=== PATIENT | female | born 1940 | race Caucasian/White ===

== ENCOUNTER → 2017-04-09 | Outpatient (CLI) | payer MEDICARE ==
[2016-01-07 11:20] VITALS: BMI 18.7
[~2017-04-09] MED LIST: ADV100/50 INH; ALB0.5 INH; ALB18R INH; ALBU8.5H IH; ALBU8.5H11 INH; ASP325 PO; ASPI-1471 PO; AUG875 PO; AZIT-17 PO; AZIT500T47 PO; BENZ100C4 PO; BUDE0.256 IH; BUDE0.5A6 IH; DOXY-181 PO; DOXY100T3 PO; DUL100/5PT IH; ESTR625 PO; FLU IM; FLU45SYR17 IM; FLU45SYR25 IM ONLY; FLUT1DIS28 IH; FORM20VI IH; HERB1CAP PO; HYDR-4309 PO; IBU200 PO; IPRA3AMP21 IH; KET10 PO; LANS15CA38 PO; LEVO-3 PO; LEVO100T95 PO; LEVO75TA68 PO; LEVO75TA73 PO; LEVO88TA45 PO; MIRT-22; MIRT-22 PO; OXYGEN INH; OXYGENHOME INH; PNEU0.5D3 IM; PRE10 PO; PRE20 PO; PRED-420 PO; PRED20TA6 PO; PSYP PO; SIMV-49 PO; TIO18R INFIL; TIO18R INH; TRAM-627 PO; TUM500 PO; VERA180T50 PO; VERS120 PO; ZOLP-350 PO; ZOLP-360 PO; [UNRECOGNIZED DRUG - CODE] PO; [UNRECOGNIZED DRUG - CODE] PO; [UNRECOGNIZED DRUG - OTHER] PO
[2017-04-09 09:33] LABS: PLATELET COUNT, AUTOMATED 324 K/uL (150-450)
== END ==
LOC: LAB 09:03
PROVIDERS: ATTEND Internal Medicine
DX: R09.02 Hypoxemia (principal); J44.9 Chronic obstructive pulmonary disease, unspecified; E03.9 Hypothyroidism, unspecified; I10 Essential (primary) hypertension
CPT/HCPCS: 36415; 82040; 82247; 82310; 82374; 82435; 82565; 82947; 84075; 84132; 84155; 84295; 84439; 84443; 84450; 84460; 84520; 85025

== ENCOUNTER → 2017-07-31 | Outpatient (CLI) | payer MEDICARE ==
[2016-01-07 11:20] VITALS: BMI 18.7
[2017-07-31 16:34] LABS: PLATELET COUNT, AUTOMATED 309 K/uL (150-450)
== END ==
LOC: LAB 16:14
PROVIDERS: ATTEND Internal Medicine
DX: J44.9 Chronic obstructive pulmonary disease, unspecified (principal); I10 Essential (primary) hypertension; E03.9 Hypothyroidism, unspecified; R09.02 Hypoxemia; R41.3 Other amnesia
CPT/HCPCS: 36415; 82040; 82247; 82310; 82374; 82435; 82565; 82947; 84075; 84132; 84155; 84295; 84439; 84443; 84450; 84460; 84520; 85025

== ENCOUNTER → 2017-08-19 | Outpatient (CLI) | payer MEDICARE ==
[2016-01-07 11:20] VITALS: BMI 18.7
[~2017-08-19] MED LIST changes: +GADOBENATE 529MG/1ML 15ML VIAL IVP ONE
--- NOTE | 2017-08-19 17:13 | RADIOLOGY IMAGING REPORT ---
FACILITY: [facility] - [place] PATIENT NAME: Yareli Malcolm : 1940 MR: [id number] V: [id number] EXAM DATE: ORDERING PHYSICIAN: ОЛЬГА DOUGLAS TECHNOLOGIST: Location: [facility] Patient: Yareli Malcolm : 1940 Visit/Account:[id number] Date of Sevice: 08/19/2017 BRAIN W W/O CONTRAST Provided history: memory decline Additional pertinent history: none TECHNIQUE: Multiplanar multisequence brain MRI was performed without and with intravenous contrast Contrast dose: 11 mL of MultiHance. Additional focused sequences: none COMPARISON STUDIES: Brain MRI 03/14/16 FINDINGS: Brain volume: Normal Acute ischemia: None Chronic cortical and ganglionic ischemia: none significant Hemorrhage: None Masses / edema: None White matter lesions : Reidentified are multiple deep and peripheral T2 hyperintensities, little marguerite nged from the prior exam. Additional high signal parallels the surface of lateral ventricles along t he anterior bodies and frontal horns also little changed. There is sparing of the temporal lobes and the juxtacortical white matter. Brainstem and cerebellum are normal. Vessels: There is a mildly prominent flow void of the left internal carotid bifurcation that I doubt is significant. Extra-axial: Asymmetric CSF intensity over the right cerebellar hemisphere measures up to 7 mm in gr eatest thickness. It is precisely isointense to CSF on all sequences. It is slightly more prominent compared to most recent exam. There are no older exams for comparison.. Calvarium / scalp: Negative Skull base / infratemporal fossa: Cerebellar tonsils extend just below the foramen magnum, within no rmal limits. Visualized sinuses / orbits / upper neck: Mild sphenoid inflammatory disease, stable from prior. IMPRESSION: 1. No evidence of hemorrhage, intra-axial mass or acute ischemia. 2. White matter changes, more than is typical for age. Pattern more consistent with chronic small v essel disease than demyelination. 3. Potential subdural hygroma over the right cerebellar hemisphere. Surveillance follow-up may be w arranted. Report Dictated By: Keyon Frazier MD at 08/19/2017 5:01 PM Report E-Signed By: Keyon Frazier MD at 08/19/2017 5:09 PM WSN:[id number]
== END ==
LOC: MRI 02:25
PROVIDERS: ATTEND Internal Medicine
DX: I67.9 Cerebrovascular disease, unspecified (principal)
CPT/HCPCS: 70553; A9577

== ENCOUNTER → 2018-01-08 | Outpatient (CLI) | payer MEDICARE ==
[2016-01-07 11:20] VITALS: BMI 18.7
[~2018-01-08] MED LIST changes: -GADOBENATE 529MG/1ML 15ML VIAL IVP ONE; -HYDR-4309 PO; +HYDR-653 PO; +IPRA3AMP10 IH; -IPRA3AMP21 IH; +TRAZ50TA34 PO; +VERA120T14 PO
--- NOTE | 2018-01-08 11:11 | RADIOLOGY IMAGING REPORT ---
FACILITY: [facility] PATIENT NAME: Yareli Malcolm : 1940 MR: [id number] V: [id number] EXAM DATE: ORDERING PHYSICIAN: DWIGHT SAUER TECHNOLOGIST: Location: [facility] [place] Patient: Yareli Malcolm : 1940 Visit/Account:[id number] Date of Sevice: 01/08/2018 CHEST W/O CONTRAST History: Pulmonary emphysema, COPD, shortness of breath TECHNIQUE: Contiguous axial images were performed through the chest to the level of the adrenal gla nds. No IV contrast was administered. Coronal and sagittal reformatting was also performed.Dose Lower ing Technique One of the following dose optimization techniques was utilized in the performance of this exam: Autom ated exposure control; adjustment of the mA and/or kV according to the patient's size; or use of an i terative reconstruction technique. Specific details can be referenced in the facility's radiology C T exam operational policy. COMPARISON STUDIES: CTA chest June 25, 2016. Lungs / Pleura: Biapical fibrotic stranding appears similar to the prior study. Right upper lobe b ullous disease also appears similar. There is diffuse emphysematous changes throughout the lung fiel ds scarring again noted in the lingula right middle lobe and right lower lobe Mediastinum/nodes: negative. Heart and vessels: There are coronary artery calcifications mild to moderate calcifications identifi ed in the thoracic aorta and branch vessels Musculoskeletal / Body wall: Osteopenia the visualized bones and spondylotic changes of the thoraci c spine. There are bilateral breast implants with extensive capsular calcifications again noted Upper abdomen: Incompletely imaged is the left upper pole left renal cyst small splenule also ident ified in the left upper abdomen IMPRESSION: Severe emphysematous changes again seen throughout the lungs in addition to right upper lobe bullous disease. Scarring in the right middle lobe lingula and right lower lobe also again noted Additional chronic findings as described Report Dictated By: Monae Damian MD at 01/08/2018 10:58 AM Report E-Signed By: Monae Damian MD at 01/08/2018 11:06 AM WSN:[email or web address]
== END ==
LOC: CT 00:30
PROVIDERS: ATTEND Internal Medicine
DX: J43.9 Emphysema, unspecified (principal); R91.8 Other nonspecific abnormal finding of lung field
CPT/HCPCS: 71250

== ENCOUNTER 2018-04-05 09:22 | Emergency (ER) | payer MEDICARE ==
[2016-01-07 11:20] VITALS: Wt 45.4 kg
[~2018-04-05 09:22] MED LIST changes: -VERA120T14 PO; +VERA120T76 PO
--- NOTE | 2018-04-05 09:27 | ER Report ---
History and Physical Time Seen By MD: 09:27 HPI/ROS CHIEF COMPLAINT: Decreased hearing, otalgia HISTORY OF PRESENT ILLNESS: Patient is a 78-year-old female here with complaints of bilateral otalgia, decreased hearing especially in the left ear. Patient was seen on the and started on amoxicillin, antimicrobial and steroid eardrops. Patient reports no improvement of symptoms and increased hearing loss. REVIEW OF SYSTEMS: Constitutional: No fever, no chills. Eyes: No discharge. ENT: No sore throat. + b/l decreased hearing and otalgia Cardiovascular: No chest pain, no palpitations. Respiratory: No cough, no shortness of breath. Gastrointestinal: No abdominal pain, no vomiting. Genitourinary: No hematuria. Musculoskeletal: No back pain. Skin: No rashes. Neurological: No headache. Allergies: Coded Allergies: No Known Drug Allergies (Verified , 04/05/18) Home Meds Active Scripts Verapamil Hcl (VERAPAMIL ER) 120 Mg Tablet.er, 1 TAB PO DAILY, #90 TAB Prov:ОЛЬГА DOUGLAS MD 01/06/18 Verapamil HCl (Verapamil Sr) 120 Mg Cap24h.pel, 1 TAB PO DAILY, #90 TAB 3 Refills Prov:ОЛЬГА DOUGLAS MD 01/01/18 Albuterol Sulfate (VENTOLIN HFA) 18 Gm Inh, 2 PUFF INH Q4-6H PRN for SHORTNESS OF BREATH, #1 INH 6 Refills Prov:ОЛЬГА DOUGLAS MD 08/01/17 Ipratropium/Albuterol Sulfate (IPRAT-ALBUT 0.5-3(2.5) MG/3 ML) 3 Ml Ampul.neb, 3 ML IH QID PRN for SHORTNESS OF BREATH, #60 VIAL 5 Refills Prov:ОЛЬГА DOUGLAS MD 08/01/17 Aspirin (ASPIR 81) 81 Mg Tablet.dr, 81 MG PO QDAY, #90 TAB Prov:ОЛЬГА DOUGLAS MD 03/16/16 Reported Medications Melatonin (MELATONIN) 10 Mg Capsule, 10 MG PO HS, CAPSULE 04/05/18 Levothyroxine Sodium (LEVOTHYROXINE SODIUM) 100 Mcg Tablet, 100 MCG PO QDAY, TAB 04/05/18 Oxygen (OXYGEN) Inha, 5 L INH, L 06/29/16 Budesonide (BUDESONIDE) 0.25 Mg/2 Ml Ampul.neb, 0.25 MG IH BID, ML 01/06/16 Formoterol Fumarate (PERFOROMIST) 20 Mcg/2 Ml Vial.neb, 20 MCG IH BID 01/06/16 Hx Smoking: Yes Smoking Status: Former Smoker Exposure to Second Hand Smoke?: Yes (SOME: FAMILY SMOKES OUTSIDE) Hx Substance Use Disorder: No Hx Alcohol Use: Yes (RARELY) Constitutional Physical Exam General Appearance: The patient is alert, has no immediate need for airway protection and no signs of toxicity. NAD Eyes: Pupils equal and round no pallor or injection. ENT, Mouth: + b/l cerumen impaction Respiratory: There are no retractions, lungs are clear to auscultation. Neurological: No focal neuro findings Skin: Warm and dry, no rashes. Musculoskeletal: Neck is supple non tender. Extremities are nontender, nonswollen and have full range of motion. DIFFERENTIAL DIAGNOSIS: After history and physical exam differential diagnosis was considered for cerumen impaction, conductive nerve damage, otitis media, otitis externa Medical Decision Making ED Course/Re-evaluation ED Course Patient is a 78-year-old female here with complaints of bilateral otalgia, decreased hearing. Patient was found to have partial cerumen impactions of the ear canals bilaterally. Patient's cerumen impactions were partially removed using cerumen scraper and ear flush. Patient had mild improvement of symptoms. Recommend follow-up with ENT. Recommend stopping steroid eardrops as the ear canal has become very friable. Patient was stable at time of discharge. Decision to Disposition Date: Apr 05, 2018 Decision to Disposition Time: 10:44 Depart Departure Latest Vital Signs Impression: Primary Impression: Ear ache Additional Impression: Hearing loss Condition: Improved Disposition: HOME OR SELF-CARE Referrals: ОЛЬГА DOUGLAS MD (PCP) Patient Instructions: Hearing Loss (ED) Additional Instructions: Please follow-up with ear nose and throat to further evaluate your hearing loss and ear pain. Please discontinue your eardrops and avoid using Q-tips or other [id number] products that may cause trauma to the ear ear canal. Please return immediately if you develop headaches, worsening pain, increased hearing loss. Problem Qualifiers ROGER DE JESUS DO Apr 05, 2018 09:27
[2018-04-05] MEDS ORDERED: LEVO-3 PO (09:34)
[2018-04-05] MEDS ORDERED: MELA10CA PO (09:34)
[2018-04-05 09:35] VITALS: BP 141/97
== END 2018-04-05 10:53 | disposition home or self-care (01) ==
LOC: ER 09:37
DX: H92.03 Otalgia, bilateral (principal)
CPT/HCPCS: 69210; 99282

== ENCOUNTER → 2018-05-06 | Outpatient (CLI) | payer MEDICARE ==
[2016-01-07 11:20] VITALS: BMI 18.7
[~2018-05-06] MED LIST changes: +FLUT16SP19 NS; +MELA10CA PO
--- NOTE | 2018-05-06 15:05 | RADIOLOGY IMAGING REPORT ---
FACILITY: [facility] PATIENT NAME: Yareli Malcolm : 1940 MR: [id number] V: [id number] EXAM DATE: ORDERING PHYSICIAN: LUL RAMÍREZ TECHNOLOGIST: Location: [facility] Patient: Yareli Malcolm : 1940 Visit/Account:[id number] Date of Sevice: 05/06/2018 XR WRIST 3 OR MORE VIEWS HISTORY: Bilateral wrist pain, fell forward on wrists 3 wks ago Additional history: None COMPARISON: None. FINDINGS: Three views bilateral wrists. Osseous structures of both wrists are intact without evidence of fract ure. There is mild intercarpal joint space narrowing at the scaphotrapezium joints bilaterally. IMPRESSION: Negative for acute fracture. 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
--- NOTE | 2018-05-06 15:06 | RADIOLOGY IMAGING REPORT ---
FACILITY: [facility] PATIENT NAME: Yareli Malcolm : 1940 MR: [id number] V: [id number] EXAM DATE: ORDERING PHYSICIAN: LUL RAMÍREZ TECHNOLOGIST: Location: [facility] [place] Patient: Yareli Malcolm : 1940 Visit/Account:[id number] Date of Sevice: 05/06/2018 HUMERUS RIGHT Given history: R upper arm pain, fell 3 wks ago COMPARISON STUDIES: NONE FINDINGS: Osseous structures: Humerus intact without evidence of fracture Joints: Right shoulder and elbow joints appear grossly normal Soft tissues: normal . IMPRESSION: Negative exam. Report Dictated By: Marcus Valdez MD at 05/06/2018 3:00 PM Report E-Signed By: Marcus Valdez MD at 05/06/2018 3:00 PM WSN:[email or web address]
== END ==
LOC: RAD 11:45
PROVIDERS: ATTEND Nurse Practitioner Primary Care
DX: M25.531 Pain in right wrist (principal); M79.601 Pain in right arm

== ENCOUNTER 2018-05-31 10:04 | Emergency (ER) | payer MEDICARE ==
[2016-01-07 11:20] VITALS: Wt 44.5 kg
--- NOTE | 2018-05-31 10:11 | ER Report ---
History and Physical Time Seen By MD: 10:11 HPI/ROS CHIEF COMPLAINT: Weakness, right upper extremity edema, proximal right upper extremity pain HISTORY OF PRESENT ILLNESS: Patient is a 78-year-old female here after a fall approximately one month ago with complaints of proximal right upper extremity pain, distal edema, concern for clot formation, increasing fatigue, decreased appetite. Patient's family member also reports that the patient has been confused, increasingly more forgetful over the past several days. Right upper extremity has proximal pain, distal edema prompting concern from family. Patient is alert and oriented, hemodynamically stable at time of evaluation. REVIEW OF SYSTEMS: Constitutional: No fever, no chills. Eyes: No discharge. ENT: No sore throat. Cardiovascular: No chest pain, no palpitations. Respiratory: No cough, no shortness of breath. Gastrointestinal: No abdominal pain, no vomiting. Genitourinary: No hematuria. Musculoskeletal: + Right distal upper extremity mild edema without pitting, proximal tenderness on palpation of the humerus of the right upper extremity. Capillary refill less than 2 seconds in the distal extremity Skin: No rashes. Neurological: Neurovascular exam intact, patient was alert and oriented at time of evaluation Allergies: Coded Allergies: No Known Drug Allergies (Verified , 05/31/18) Home Meds Active Scripts Sulfamethoxazole/Trimet 800-160 Mg Tab (BACTRIM DS TABLET) 1 Each Tablet, 1 TAB PO Q12H for 7 Days, #14 TAB Prov:ROGER DE JESUS DO 05/31/18 Ondansetron 4 Mg Odt (ONDANSETRON 4 MG ODT) 4 Mg Tab.rapdis, 4 MG PO ONCE, #20 TAB Prov:ROGER DE JESUS DO 05/31/18 Tramadol Hcl (TRAMADOL HCL) 50 Mg Tablet, 50 MG PO Q6H PRN for PAIN, #20 TAB 0 Refills Prov:ROGER DE JESUS DO 05/31/18 Fluticasone Prop 50 Mcg Ns (FLONASE 50 MCG NS) 16 Gm Solsberry.susp, 2 SPRAYS NS QDAY for 14 Days, #1 BOT 0 Refills Prov:LUL RAMÍREZ DNP, MANAGER BUSINESS CONTINUITY-BC 05/06/18 Albuterol Sulfate (VENTOLIN HFA) 18 Gm Inh, 2 PUFF INH Q4-6H PRN for SHORTNESS OF BREATH, #1 INH 6 Refills Prov:ОЛЬГА DOUGLAS MD 08/01/17 Ipratropium/Albuterol Sulfate (IPRAT-ALBUT 0.5-3(2.5) MG/3 ML) 3 Ml Ampul.neb, 3 ML IH QID PRN for SHORTNESS OF BREATH, #60 VIAL 5 Refills Prov:ОЛЬГА DOUGLAS MD 08/01/17 Aspirin (ASPIR 81) 81 Mg Tablet.dr, 81 MG PO QDAY, #90 TAB Prov:ОЛЬГА DOUGLAS MD 03/16/16 Reported Medications Pnv#75/Iron Fum/Fa/Om3/Dha/Epa (ONE A DAY DHA PACK) 1 Each Combo..pkg, 1 CAP PO QDAY 05/31/18 Melatonin (MELATONIN) 10 Mg Capsule, 10 MG PO HS, CAPSULE 04/05/18 Levothyroxine Sodium (LEVOTHYROXINE SODIUM) 100 Mcg Tablet, 100 MCG PO QDAY, TAB 04/05/18 Oxygen (OXYGEN) Inha, 5 L INH, L 06/29/16 Budesonide (BUDESONIDE) 0.25 Mg/2 Ml Ampul.neb, 0.25 MG IH BID, ML 01/06/16 Formoterol Fumarate (PERFOROMIST) 20 Mcg/2 Ml Vial.neb, 20 MCG IH BID 01/06/16 Discontinued Scripts Verapamil Hcl (VERAPAMIL ER) 120 Mg Tablet.er, 1 TAB PO DAILY, #90 TAB Prov:ОЛЬГА DOUGLAS MD 01/06/18 Verapamil HCl (Verapamil Sr) 120 Mg Cap24h.pel, 1 TAB PO DAILY, #90 TAB 3 Refills Prov:ОЛЬГА DOUGLAS MD 01/01/18 Hx Smoking: Yes Smoking Status: Former Smoker Exposure to Second Hand Smoke?: Yes (SOME: FAMILY SMOKES OUTSIDE) Hx Substance Use Disorder: No Hx Alcohol Use: Yes (RARELY) Constitutional Vital Sign - Last 24 Hours 05/31/18 05/31/18 05/31/18 05/31/18 10:16 10:22 10:31 10:34 Temp 98.5 Pulse 71 74 Resp 18 20 B/P (MAP) 152/91 (111) 152/91 Pulse Ox 98 97 O2 Delivery Nasal Cannula O2 Flow Rate 3.0 05/31/18 05/31/18 05/31/18 4/20/19 11:00 11:04 11:09 11:55 Pulse 82 71 Resp 23 18 B/P (MAP) 147/84 (105) 143/83 (103) Pulse Ox 98 99 05/31/18 05/31/18 05/31/18 05/31/18 12:00 12:02 12:05 12:30 Pulse 73 75 Resp 17 19 B/P (MAP) 132/84 (100) 140/86 (104) Pulse Ox 96 96 O2 Delivery Nasal Cannula Nasal Cannula O2 Flow Rate 3 2 05/31/18 05/31/18 05/31/18 12:35 13:00 13:05 Pulse 76 74 Resp 20 20 B/P (MAP) 141/85 (103) Pulse Ox 96 95 O2 Delivery Nasal Cannula Nasal Cannula O2 Flow Rate 2 2 Physical Exam General Appearance: The patient is alert, has no immediate need for airway protection and no signs of toxicity. Nontoxic in appearance Eyes: Pupils equal and round no pallor or injection. ENT, Mouth: Mucous membranes are moist. Respiratory: There are no retractions, lungs are clear to auscultation. Cardiovascular: Regular rate and rhythm. Gastrointestinal: Abdomen is soft and non tender, no masses, bowel sounds normal. Neurological: Alert and oriented, moving all extremities spontaneously, no focal neurological findings on examination Skin: Warm and dry, no rashes. Musculoskeletal: Neck is supple non tender. Mild edema in the distal right upper extremity, proximal tenderness on palpation of the right humerus DIFFERENTIAL DIAGNOSIS: After history and physical exam differential diagnosis was considered for DVT, trauma, fracture, contusion, electrolyte abnormality, infectious etiology, viral syndrome Medical Decision Making Data Points Result Diagram: 05/31/18 1042 05/31/18 1042 Laboratory Hematology Test 05/31/18 10:42 05/31/18 12:17 Red Blood Count 3.38 M/uL (4.17-5.56) Mean Corpuscular Volume 99.8 fL (80.0-96.0) Mean Corpuscular Hemoglobin 32.7 pg (26.0-33.0) Mean Corpuscular Hemoglobin Concent 32.8 g/dL (32.0-36.0) Red Cell Distribution Width 13.3 % (11.5-14.5) Mean Platelet Volume 7.8 fL (7.2-11.1) Neutrophils (%) (Auto) 57.4 % (39.4-72.5) Lymphocytes (%) (Auto) 27.8 % (17.6-49.6) Monocytes (%) (Auto) 6.1 % (4.1-12.4) Eosinophils (%) (Auto) 6.8 % (0.4-6.7) Basophils (%) (Auto) 1.9 % (0.3-1.4) Nucleated RBC Relative Count (auto) 0.0 /100WBC Neutrophils # (Auto) 4.2 K/uL (2.0-7.4) Lymphocytes # (Auto) 2.0 K/uL (1.3-3.6) Monocytes # (Auto) 0.4 K/uL (0.3-1.0) Eosinophils # (Auto) 0.5 K/uL (0.0-0.5) Basophils # (Auto) 0.1 K/uL (0.0-0.1) Nucleated RBC Absolute Count (auto) 0.00 K/uL Prothrombin Time 12.1 seconds (12.0-14.4) Prothromb Time International Ratio 0.90 Activated Partial Thromboplast Time 29 seconds (23-35) Sodium Level 139 mmol/L (137-145) Potassium Level 3.8 mmol/L (3.5-5.0) Chloride Level 105 mmol/L (98-107) Carbon Dioxide Level 28 mmol/L (22-31) Blood Urea Nitrogen 18 mg/dl (7-18) Creatinine 0.80 mg/dl (0.52-1.04) Glomerular Filtration Rate Calc > 60.0 Random Glucose 76 mg/dl (75-110) Calcium Level 8.9 mg/dl (8.4-10.2) Total Bilirubin 0.2 mg/dl (0.2-1.3) Aspartate Amino Transf (AST/SGOT) 24 U/L (0-35) Alanine Aminotransferase (ALT/SGPT) 15 U/L (0-56) Alkaline Phosphatase 58 U/L (0-126) Total Protein 7.0 g/dl (6.3-8.2) Albumin 3.6 g/dl (3.5-5.0) Lipase 71 U/L (23-300) Serum Alcohol < 10 mg/dl Urine Color Straw Urine Clarity Clear Urine pH 5.0 pH (4.8-9.5) Urine Specific [place] 1.024 Urine Protein Negative mg/dL (NEGATIVE) Urine Glucose (UA) Negative mg/dL (NEGATIVE) Urine Ketones Trace mg/dL (NEGATIVE) Urine Blood Negative (NEGATIVE) Urine Nitrite Positive (NEGATIVE) Urine Bilirubin Negative (NEGATIVE) Urine Urobilinogen Negative mg/dL (0.2-1.9) Urine Leukocyte Esterase Trace (NEGATIVE) Urine RBC 1 /HPF (0-2/HPF) Urine WBC 8 /HPF (0-5/HPF) Urine Squamous Epithelial Cells Many /LPF (</=FEW) Urine Amorphous Crystals Few /HPF Urine Bacteria Few /HPF (NONE-FEW) Urine Mucus None /HPF (NONE-FEW) Chemistry Test 05/31/18 10:42 05/31/18 12:17 White Blood Count 7.4 k/uL (4.5-11.0) Red Blood Count 3.38 M/uL (4.17-5.56) Hemoglobin 11.1 g/dL (12.0-16.0) Hematocrit 33.8 % (34.0-47.0) Mean Corpuscular Volume 99.8 fL (80.0-96.0) Mean Corpuscular Hemoglobin 32.7 pg (26.0-33.0) Mean Corpuscular Hemoglobin Concent 32.8 g/dL (32.0-36.0) Red Cell Distribution Width 13.3 % (11.5-14.5) Platelet Count 352 K/uL (150-450) Mean Platelet Volume 7.8 fL (7.2-11.1) Neutrophils (%) (Auto) 57.4 % (39.4-72.5) Lymphocytes (%) (Auto) 27.8 % (17.6-49.6) Monocytes (%) (Auto) 6.1 % (4.1-12.4) Eosinophils (%) (Auto) 6.8 % (0.4-6.7) Basophils (%) (Auto) 1.9 % (0.3-1.4) Nucleated RBC Relative Count (auto) 0.0 /100WBC Neutrophils # (Auto) 4.2 K/uL (2.0-7.4) Lymphocytes # (Auto) 2.0 K/uL (1.3-3.6) Monocytes # (Auto) 0.4 K/uL (0.3-1.0) Eosinophils # (Auto) 0.5 K/uL (0.0-0.5) Basophils # (Auto) 0.1 K/uL (0.0-0.1) Nucleated RBC Absolute Count (auto) 0.00 K/uL Prothrombin Time 12.1 seconds (12.0-14.4) Prothromb Time International Ratio 0.90 Activated Partial Thromboplast Time 29 seconds (23-35) Glomerular Filtration Rate Calc > 60.0 Calcium Level 8.9 mg/dl (8.4-10.2) Total Bilirubin 0.2 mg/dl (0.2-1.3) Aspartate Amino Transf (AST/SGOT) 24 U/L (0-35) Alanine Aminotransferase (ALT/SGPT) 15 U/L (0-56) Alkaline Phosphatase 58 U/L (0-126) Total Protein 7.0 g/dl (6.3-8.2) Albumin 3.6 g/dl (3.5-5.0) Lipase 71 U/L (23-300) Serum Alcohol < 10 mg/dl Urine Color Straw Urine Clarity Clear Urine pH 5.0 pH (4.8-9.5) Urine Specific [place] 1.024 Urine Protein Negative mg/dL (NEGATIVE) Urine Glucose (UA) Negative mg/dL (NEGATIVE) Urine Ketones Trace mg/dL (NEGATIVE) Urine Blood Negative (NEGATIVE) Urine Nitrite Positive (NEGATIVE) Urine Bilirubin Negative (NEGATIVE) Urine Urobilinogen Negative mg/dL (0.2-1.9) Urine Leukocyte Esterase Trace (NEGATIVE) Urine RBC 1 /HPF (0-2/HPF) Urine WBC 8 /HPF (0-5/HPF) Urine Squamous Epithelial Cells Many /LPF (</=FEW) Urine Amorphous Crystals Few /HPF Urine Bacteria Few /HPF (NONE-FEW) Urine Mucus None /HPF (NONE-FEW) Coagulation Test 05/31/18 10:42 Prothrombin Time 12.1 seconds Prothromb Time International Ratio 0.90 Activated Partial Thromboplast Time 29 seconds Toxicology Test 05/31/18 10:42 Serum Alcohol < 10 mg/dl Urinalysis Test 05/31/18 12:17 Urine Color Straw Urine Clarity Clear Urine pH 5.0 pH (4.8-9.5) Urine Specific [place] 1.024 Urine Protein Negative mg/dL (NEGATIVE) Urine Glucose (UA) Negative mg/dL (NEGATIVE) Urine Ketones Trace mg/dL (NEGATIVE) Urine Blood Negative (NEGATIVE) Urine Nitrite Positive (NEGATIVE) Urine Bilirubin Negative (NEGATIVE) Urine Urobilinogen Negative mg/dL (0.2-1.9) Urine Leukocyte Esterase Trace (NEGATIVE) Urine RBC 1 /HPF (0-2/HPF) Urine WBC 8 /HPF (0-5/HPF) Urine Squamous Epithelial Cells Many /LPF (</=FEW) Urine Amorphous Crystals Few /HPF Urine Bacteria Few /HPF (NONE-FEW) Urine Mucus None /HPF (NONE-FEW) EKG/Imaging Imaging PATIENT NAME: Yareli Malcolm : 1940 MR: [id number] V: [id number] EXAM DATE: ORDERING PHYSICIAN: ROGER DE JESUS TECHNOLOGIST: Location: [facility] [place] Patient: Yareli Malcolm : 1940 Visit/Account:[id number] Date of Sevice: 05/31/2018 EXAMINATION: CT Head without intravenous contrast CT Cervical spine without intravenous contrast HISTORY: Trauma. TECHNIQUE: Head: Axial images were obtained from the skull base to the vertex without intravenous contrast. Sagittal and coronal reformatted images are also submitted. Cervical spine: Axial images were obtained from the skull base through the upper thoracic spine without IV contrast administration. Coronal and sagittal reformatted images were obtained from the axial source data. One of the following dose optimization techniques was utilized in the performance of this exam: Automated exposure control; adjustment of the mA and/or kV according to the patient's size; or use of an iterative reconstruction technique. Specific details can be referenced in the facility's radiology CT exam operational policy. COMPARISON: None available. FINDINGS: HEAD: Brain volume: Normal. Ventricles: Negative. Acute ischemic changes: None. Hemorrhage: None. Masses / edema: None. Diaz-white: Negative. White matter: Negative. Vessels: Mild calcified plaque in the carotid siphons and vertebral arteries. Extra-axial: Negative. Calvarium / skull base: Negative. Visualized sinuses / orbits: Moderate mucosal thickening in the left sphenoid sinus. Leftward nasal septal deviation. Left mastoid effusion. CERVICAL SPINE: Alignment: 3 mm of anterior listhesis of C3 over C4. Mild convex leftward curvature. Cranio-cervical junction: Moderate degenerative changes. Otherwise negative. Vertebral bodies: Negative. Posterior elements: Multilevel facet hypertrophy. Hardware: None. Disc Spaces: Multilevel degenerative disc disease. Soft tissues: No prevertebral soft tissue swelling. Visualized upper chest: Emphysema in the upper lungs. IMPRESSION: 1. No acute intracranial abnormality. 2. No acute cervical spine fracture. PATIENT NAME: Yareli Malcolm : 1940 MR: [id number] V: [id number] EXAM DATE: ORDERING PHYSICIAN: ROGER DE JESUS TECHNOLOGIST: Location: [facility] [place] Patient: Yareli Malcolm : 1940 Visit/Account:[id number] Date of Sevice: 05/31/2018 Technique: CHEST SINGLE AP HISTORY: fall. weakness Comparison studies: CT chest December 31, 2017, chest radiograph July 05, 2016 FINDINGS: Regional areas of scarring in the background setting of interstitial lung markings are noted throughout the lungs. These findings are most pronounced within the right lung base. The cardiac silhouette is unchanged. IMPRESSION: 1. Unchanged emphysematous findings. No acute airspace process. PATIENT NAME: Yareli Malcolm : 1940 MR: [id number] V: [id number] EXAM DATE: ORDERING PHYSICIAN: ROGER DE JESUS TECHNOLOGIST: Location: [facility] [place] Patient: Yareli Malcolm : 1940 Visit/Account:[id number] Date of Sevice: 05/31/2018 EXAMINATION: CT Head without intravenous contrast CT Cervical spine without intravenous contrast HISTORY: Trauma. TECHNIQUE: Head: Axial images were obtained from the skull base to the vertex without int ravenous contrast. Sagittal and coronal reformatted images are also submitted. Cervical spine: Axial images were obtained from the skull base through the upper thoracic spine without IV contrast administration. Coronal and sagittal reformatted images were obtained from the axial source data. One of the following dose optimization techniques was utilized in the performance of this exam: Automated exposure control; adjustment of the mA and/or kV according to the patient's size; or use of an iterative reconstruction technique. Specific details can be referenced in the facility's radiology CT exam operational policy. COMPARISON: None available. FINDINGS: HEAD: Brain volume: Normal. Ventricles: Negative. Acute ischemic changes: None. Hemorrhage: None. Masses / edema: None. Diaz-white: Negative. White matter: Negative. Vessels: Mild calcified plaque in the carotid siphons and vertebral arteries. Extra-axial: Negative. Calvarium / skull base: Negative. Visualized sinuses / orbits: Moderate mucosal thickening in the left sphenoid sinus. Leftward nasal septal deviation. Left mastoid effusion. CERVICAL SPINE: Alignment: 3 mm of anterior listhesis of C3 over C4. Mild convex leftward curvature. Cranio-cervical junction: Moderate degenerative changes. Otherwise negative. Vertebral bodies: Negative. Posterior elements: Multilevel facet hypertrophy. Hardware: None. Disc Spaces: Multilevel degenerative disc disease. Soft tissues: No prevertebral soft tissue swelling. Visualized upper chest: Emphysema in the upper lungs. IMPRESSION: 1. No acute intracranial abnormality. 2. No acute cervical spine fracture. PATIENT NAME: Yareli Malcolm : 1940 MR: [id number] V: [id number] EXAM DATE: ORDERING PHYSICIAN: ROGER DE JESUS TECHNOLOGIST: Location: [facility] [place] Patient: Yareli Malcolm : 1940 Visit/Account:[id number] Date of Sevice: 05/31/2018 CTA UPPER EXTREMITY INDICATION: Right upper extremity pain. TECHNIQUE: Axial CTA of the right upper extremity with IV contrast. Sagittal and coronal MPR. Sagittal and coronal MIP. One of the following dose optimization techniques was utilized in the performance of this exam: Automated exposure control; adjustment of the mA and/or kV according to the patient's size; or use of an iterative reconstruction technique. Specific details can be referenced in the facility's radiology CT exam operational policy. COMPARISON: None. CONTRAST: 85 mL of IV [id number]. FINDINGS: Vascular findings: Mild calcified and noncalcified plaque in the aortic arch and proximal left subclavian artery with no significant stenosis. Mild calcified plaque in the carotid bulbs with no significant stenosis. No significant plaque, stenosis, or aneurysm in the right upper extremity arteries. Nonvascular findings: Multilevel degenerative disc disease and facet hypertrophy in the cervical spine . Emphysema in the lungs. IMPRESSION: No significant plaque, stenosis, or aneurysm in the right upper extremity arteries. ED Course/Re-evaluation ED Course Patient is a 78-year-old female here with complaints of right upper extremity distal edema, tenderness in the proximal extremity, fatigue, generalized weakness, reports of intermittent change in mental status. CT of the head, extremity, vasculature showed no findings of infection, abscess or clot formation or thrombosis. Labs are unremarkable with no leukocytosis. Patient was given normal saline bolus, fentanyl. Chest x-ray showed no acute findings. Patient was found to have a urinalysis consistent with urinary tract infection. Patient was given ceftriaxone due to reports of change in mental status, ge neralized weakness. Patient was given compression stocking for right upper extremity edema. Patient was given Bactrim, tramadol, Zofran for symptomatic outpatient management. Close PCP follow-up recommended. Return precautions provided. Decision to Disposition Date: May 31, 2018 Decision to Disposition Time: 13:01 Depart Departure Latest Vital Signs Vital Signs Date Time Temp Pulse Resp B/P (MAP) Pulse Ox O2 Delivery O2 Flow Rate FiO2 05/31/18 13:05 74 20 95 Nasal Cannula 2 05/31/18 13:00 141/85 (103) 05/31/18 10:22 98.5 Impression: Primary Impression: Urinary tract infection Additional Impression: Right upper limb pain Condition: Improved Disposition: HOME OR SELF-CARE Referrals: ОЛЬГА DOUGLAS MD (PCP) New Scripts Sulfamethoxazole/Trimet 800-160 Mg Tab (BACTRIM DS TABLET) 1 Each Tablet 1 TAB PO Q12H for 7 Days, #14 TAB Prov: ROGER DE JESUS DO 05/31/18 Ondansetron 4 Mg Odt (ONDANSETRON 4 MG ODT) 4 Mg Tab.rapdis 4 MG PO ONCE, #20 TAB Prov: ROGER DE JESUS DO 05/31/18 Tramadol Hcl (TRAMADOL HCL) 50 Mg Tablet 50 MG PO Q6H PRN for PAIN, #20 TAB 0 Refills Prov: ROGER DE JESUS DO 05/31/18 Patient Instructions: Urinary Tract Infection in Women (ED) Additional Instructions: Please drink plenty of water. You were diagnosed with a urinary tract infection and given ceftriaxone for initial treatment, please take Bactrim 1 tablet twice daily for 7 days. You may take Zofran 1 tablet every 4-6 hours as needed for nausea and vomiting. You may take tramadol 1 tablet every 6-8 hours as needed for breakthrough pain control. Please follow-up with her primary care provider in the next 24-48 hours. Please return promptly if you develop increased weakness, fevers, nausea, vomiting. Problem Qualifiers ROGER DE JESUS DO May 31, 2018 10:11
[2018-05-31] MEDS ORDERED: PNV#1COM14 PO (10:31)
[2018-05-31] MEDS ORDERED: NS(*) 0.9% 1000 ML BAG 1,000 ML IV ONE (10:54)
[2018-05-31 11:07] LABS: PLATELET COUNT, AUTOMATED 352 K/uL (150-450)
[2018-05-31 11:08] LABS: INR 0.9
[2018-05-31] MEDS ORDERED: IOPAMIDOL 76% 150 ML INFUS BTL 150 ML ONE (11:27)
[2018-05-31] MEDS ORDERED: NS(*) 0.9% 50 ML BAG 50 ML ONE (11:27)
--- NOTE | 2018-05-31 11:41 | RADIOLOGY IMAGING REPORT ---
FACILITY: [facility] [place] PATIENT NAME: Yareli Malcolm : 1940 MR: [id number] V: [id number] EXAM DATE: ORDERING PHYSICIAN: ROGER DE JESUS TECHNOLOGIST: Location: [facility] Patient: Yareli Malcolm : 1940 Visit/Account:[id number] Date of Sevice: 05/31/2018 Technique: CHEST SINGLE AP HISTORY: fall. weakness Comparison studies: CT chest December 31, 2017, chest radiograph July 05, 2016 FINDINGS: Regional areas of scarring in the background setting of interstitial lung markings are note d throughout the lungs. These findings are most pronounced within the right lung base. The cardiac si lhouette is unchanged. IMPRESSION: 1. Unchanged emphysematous findings. No acute airspace process. Report Dictated By: Sherwin Everett DO at 05/31/2018 11:35 AM Report E-Signed By: Sherwin Everett DO at 05/31/2018 11:37 AM WSN:[id number]
--- NOTE | 2018-05-31 12:29 | RADIOLOGY IMAGING REPORT ---
FACILITY: [facility] [place] PATIENT NAME: Yareli Malcolm : 1940 MR: [id number] V: [id number] EXAM DATE: ORDERING PHYSICIAN: ROGER DE JESUS TECHNOLOGIST: Location: [facility] Patient: Yareli Malcolm : 1940 Visit/Account:[id number] Date of Sevice: 05/31/2018 EXAMINATION: CT Head without intravenous contrast CT Cervical spine without intravenous contrast HISTORY: Trauma. TECHNIQUE: Head: Axial images were obtained from the skull base to the vertex without intravenous contrast. Sa gittal and coronal reformatted images are also submitted. Cervical spine: Axial images were obtained from the skull base through the upper thoracic spine with out IV contrast administration. Coronal and sagittal reformatted images were obtained from the axial source data. One of the following dose optimization techniques was utilized in the performance of this exam: Autom ated exposure control; adjustment of the mA and/or kV according to the patient's size; or use of an i terative reconstruction technique. Specific details can be referenced in the facility's radiology C T exam operational policy. COMPARISON: None available. FINDINGS: HEAD: Brain volume: Normal. Ventricles: Negative. Acute ischemic changes: None. Hemorrhage: None. Masses / edema: None. Diaz-white: Negative. White matter: Negative. Vessels: Mild calcified plaque in the carotid siphons and vertebral arteries. Extra-axial: Negative. Calvarium / skull base: Negative. Visualized sinuses / orbits: Moderate mucosal thickening in the left sphenoid sinus. Leftward nasal septal deviation. Left mastoid effusion. CERVICAL SPINE: Alignment: 3 mm of anterior listhesis of C3 over C4. Mild convex leftward curvature. Cranio-cervical junction: Moderate degenerative changes. Otherwise negative. Vertebral bodies: Negative. Posterior elements: Multilevel facet hypertrophy. Hardware: None. Disc Spaces: Multilevel degenerative disc disease. Soft tissues: No prevertebral soft tissue swelling. Visualized upper chest: Emphysema in the upper lungs. IMPRESSION: 1. No acute intracranial abnormality. 2. No acute cervical spine fracture. Report Dictated By: Jason Youssef MD at 05/31/2018 12:15 PM Report E-Signed By: Jason Youssef MD at 05/31/2018 12:25 PM WSN:[id number]
--- NOTE | 2018-05-31 12:29 | RADIOLOGY IMAGING REPORT ---
FACILITY: [facility] - [place] PATIENT NAME: Yareli Malcolm : 1940 MR: [id number] V: [id number] EXAM DATE: ORDERING PHYSICIAN: ROGER DE JESUS TECHNOLOGIST: Location: [facility] Patient: Yareli Malcolm : 1940 Visit/Account:[id number] Date of Sevice: 05/31/2018 EXAMINATION: CT Head without intravenous contrast CT Cervical spine without intravenous contrast HISTORY: Trauma. TECHNIQUE: Head: Axial images were obtained from the skull base to the vertex without intravenous contrast. Sa gittal and coronal reformatted images are also submitted. Cervical spine: Axial images were obtained from the skull base through the upper thoracic spine with out IV contrast administration. Coronal and sagittal reformatted images were obtained from the axial source data. One of the following dose optimization techniques was utilized in the performance of this exam: Autom ated exposure control; adjustment of the mA and/or kV according to the patient's size; or use of an i terative reconstruction technique. Specific details can be referenced in the facility's radiology C T exam operational policy. COMPARISON: None available. FINDINGS: HEAD: Brain volume: Normal. Ventricles: Negative. Acute ischemic changes: None. Hemorrhage: None. Masses / edema: None. Diaz-white: Negative. White matter: Negative. Vessels: Mild calcified plaque in the carotid siphons and vertebral arteries. Extra-axial: Negative. Calvarium / skull base: Negative. Visualized sinuses / orbits: Moderate mucosal thickening in the left sphenoid sinus. Leftward nasal septal deviation. Left mastoid effusion. CERVICAL SPINE: Alignment: 3 mm of anterior listhesis of C3 over C4. Mild convex leftward curvature. Cranio-cervical junction: Moderate degenerative changes. Otherwise negative. Vertebral bodies: Negative. Posterior elements: Multilevel facet hypertrophy. Hardware: None. Disc Spaces: Multilevel degenerative disc disease. Soft tissues: No prevertebral soft tissue swelling. Visualized upper chest: Emphysema in the upper lungs. IMPRESSION: 1. No acute intracranial abnormality. 2. No acute cervical spine fracture. Report Dictated By: Jason Youssef MD at 05/31/2018 12:15 PM Report E-Signed By: Jason Youssef MD at 05/31/2018 12:25 PM WSN:[id number]
[2018-05-31] MEDS ORDERED: fentaNYL CITR 100 MCG/2 ML AMP IVP ONE (12:40)
[2018-05-31] MEDS ORDERED: cefTRIAXone 1 GM VIAL IVP ONE (12:40)
--- NOTE | 2018-05-31 12:47 | RADIOLOGY IMAGING REPORT ---
[place] [facility] [place]IENT NAME: Yareli Malcolm : 1940 MR: [id number] V: [id number] EXAM DATE: ORDERING PHYSICIAN: ROGER DE JESUS TECHNOLOGIST: Location: [facility] Patient: Yareli Malcolm : 1940 Visit/Account:[id number] Date of Sevice: 05/31/2018 CTA UPPER EXTREMITY INDICATION: Right upper extremity pain. TECHNIQUE: Axial CTA of the right upper extremity with IV contrast. Sagittal and coronal MPR. Sagittal and coron al MIP. One of the following dose optimization techniques was utilized in the performance of this exam: Autom ated exposure control; adjustment of the mA and/or kV according to the patient's size; or use of an i terative reconstruction technique. Specific details can be referenced in the facility's radiology C T exam operational policy. COMPARISON: None. CONTRAST: 85 mL of IV Isovue-370. FINDINGS: Vascular findings: Mild calcified and noncalcified plaque in the aortic arch and proximal left subclavian artery with no significant stenosis. Mild calcified plaque in the carotid bulbs with no significant stenosis. No si gnificant plaque, stenosis, or aneurysm in the right upper extremity arteries. Nonvascular findings: Multilevel degenerative disc disease and facet hypertrophy in the cervical spine. Emphysema in the reinier ngs. IMPRESSION: No significant plaque, stenosis, or aneurysm in the right upper extremity arteries. Report Dictated By: Jason Youssef MD at 05/31/2018 12:35 PM Report E-Signed By: Jason Youssef MD at 05/31/2018 12:43 PM WSN:[id number]
[2018-05-31 13:00] VITALS: BP 141/85
[2018-05-31] MEDS ORDERED: SULF-198 PO (13:05)
[2018-05-31] MEDS ORDERED: TRAM-420 PO (13:05)
[2018-05-31] MEDS ORDERED: ONDA4TAB9 PO (13:05)
== END 2018-05-31 13:37 | disposition home or self-care (01) ==
LOC: ER 10:13
DX: N39.0 Urinary tract infection, site not specified (principal); M79.601 Pain in right arm; R41.0 Disorientation, unspecified
CPT/HCPCS: 70450; 71045; 72125; 73206; 81001; 83690; 85025; 85610; 85730; 96361; 96374; 96375; 99284; G0480; J0696; J3010; J7030; J7050; L0172; Q9967; 80320; 82040; 82247; 82310; 82374; 82435; 82565; 82947; 84075; 84132; 84155; 84295; 84450; 84460; 84520

== ENCOUNTER 2018-06-03 10:11 | Inpatient (IN) | payer MEDICARE ==
[~2018-06-03] VITALS: Ht 165.1 cm; Wt 37.6 kg
[~2018-06-03 10:11] MED LIST changes: +ONDA4TAB9 PO; +PNV#1COM14 PO; +SULF-198 PO; +TRAM-420 PO
--- NOTE | 2018-06-03 10:20 | ER Report ---
History and Physical Time Seen By MD: 10:20 HPI/ROS CHIEF COMPLAINT: Generalized weakness HISTORY OF PRESENT ILLNESS: Patient is a 78-year-old female here with complaints of increasing generalized weakness and recent diagnosis of a UTI on the . Patient is currently being treated with Bactrim but reports increasing weakness, inability to get up from a seated position. Patient was found to be hypoxic on evaluation in spite of being on her 3 L. Patient is alert but reports increasing dyspnea especially with speaking. Patient is afebrile at time of evaluation. REVIEW OF SYSTEMS: Constitutional: No fever, no chills. Eyes: No discharge. ENT: No sore throat. Cardiovascular: No chest pain, no palpitations. Respiratory: No cough, + shortness of breath. Gastrointestinal: No abdominal pain, no vomiting. Genitourinary: No hematuria. Musculoskeletal: No back pain. Skin: No rashes. Neurological: + Generalized weakness, intermittent confusion Allergies: Coded Allergies: No Known Drug Allergies (Verified , 05/31/18) Home Meds Active Scripts Fluticasone Prop 50 Mcg Ns (FLONASE 50 MCG NS) 16 Gm [place].susp, 1 SPRAYS NS QDAY for 30 Days, #1 BOT 0 Refills Prov:JAMES RIGGS SCIENCE SPECIALIST 06/09/18 Tramadol Hcl (TRAMADOL HCL) 50 Mg Tablet, 50 MG PO Q6H PRN for PAIN, #20 TAB 0 Refills Prov:ROGER DE JESUS DO 05/31/18 Albuterol Sulfate (VENTOLIN HFA) 18 Gm Inh, 2 PUFF INH Q4-6H PRN for SHORTNESS OF BREATH, #1 INH 6 Refills Prov:ОЛЬГА DOUGLAS MD 08/01/17 Aspirin (ASPIR 81) 81 Mg Tablet.dr, 81 MG PO QDAY, #90 TAB Prov:ОЛЬГА DOUGLAS MD 03/16/16 Reported Medications Levothyroxine Sodium (LEVOTHYROXINE SODIUM) 75 Mcg Tablet, 75 MCG PO QDAY, TAB 06/06/18 Verapamil Hcl (VERAPAMIL ER) 120 Mg Tablet.er, 1 CAP PO HS 06/03/18 Pnv#75/Iron Fum/Fa/Om3/Dha/Epa (ONE A DAY DHA PACK) 1 Each Combo..pkg, 1 CAP PO QDAY 05/31/18 Melatonin (MELATONIN) 10 Mg Capsule, 10 MG PO HS, CAPSULE 04/05/18 Oxygen (OXYGEN) Inha, 5 L INH, L 06/29/16 Budesonide (BUDESONIDE) 0.25 Mg/2 Ml Ampul.neb, 0.25 MG IH BID, ML 01/06/16 Formoterol Fumarate (PERFOROMIST) 20 Mcg/2 Ml Vial.neb, 20 MCG IH BID 01/06/16 Discontinued Reported Medications Levothyroxine Sodium (LEVOTHYROXINE SODIUM) 100 Mcg Tablet, 100 MCG PO QDAY, TAB 04/05/18 Discontinued Scripts Sulfamethoxazole/Trimet 800-160 Mg Tab (BACTRIM DS TABLET) 1 Each Tablet, 1 TAB PO Q12H for 7 Days, #14 TAB Prov:ROGER DE JESUS DO 05/31/18 Ipratropium/Albuterol Sulfate (IPRAT-ALBUT 0.5-3(2.5) MG/3 ML) 3 Ml Ampul.neb, 3 ML IH QID PRN for SHORTNESS OF BREATH, #60 VIAL 5 Refills Prov:ОЛЬГА DOUGLAS MD 08/01/17 Ondansetron 4 Mg Odt (ONDANSETRON 4 MG ODT) 4 Mg Tab.rapdis, 4 MG PO ONCE, #20 TAB Prov:ROGER DE JESUS DO 05/31/18 Hx Smoking: Yes Smoking Status: Former Smoker Exposure to Second Hand Smoke?: Yes (SOME: FAMILY SMOKES OUTSIDE) Hx Substance Use Disorder: No Hx Alcohol Use: Yes (RARELY) Constitutional Physical Exam General Appearance: The patient is alert, has no immediate need for airway protection and no signs of toxicity. Eyes: Pupils equal and round no pallor or injection. ENT, Mouth: Mucous membranes are moist. Respiratory: There are no retractions, lungs are clear to auscultation. Cardiovascular: Regular rate and rhythm. Gastrointestinal: Abdomen is soft and non tender, no masses, bowel sounds normal. Neurological: Generalized weakness, no focal deficits Skin: Warm and dry, no rashes. Musculoskeletal: Neck is supple non tender. Extremities are nontender, nonswollen and have full range of motion. DIFFERENTIAL DIAGNOSIS: After history and physical exam differential diagnosis was considered for infection, electrolyte abnormality, anemia, concussion, cranial bleed Medical Decision Making Data Points Result Diagram: 06/09/1852406/09/18524 Laboratory Hematology Test 06/03/18 00:00 06/03/18 10:52 06/03/18 11:37 06/03/18 11:55 Thyroid Stimulating Hormone (TSH) 1.31 uIU/ml (0.46-4.68) Prothrombin Time 12.1 seconds (12.0-14.4) Prothromb Time International Ratio 0.90 Activated Partial Thromboplast Time 28 seconds (23-35) Lactate 1.3 mmol/L (0.7-2.1) Amylase Level 46 U/L (0-110) Lipase 40 U/L (23-300) Serum Alcohol < 10 mg/dl Ammonia < 9 UMOL/L (9-33) Urine Color Yellow Urine Clarity Clear Urine pH 6.0 pH (4.8-9.5) Urine Specific [place] 1.016 Urine Protein Negative mg/dL (NEGATIVE) Urine Glucose (UA) Negative mg/dL (NEGATIVE) Urine Ketones Trace mg/dL (NEGATIVE) Urine Blood Negative (NEGATIVE) Urine Nitrite Negative (NEGATIVE) Urine Bilirubin Negative (NEGATIVE) Urine Urobilinogen Negative mg/dL (0.2-1.9) Urine Leukocyte Esterase Negative (NEGATIVE) Urine RBC 1 /HPF (0-2/HPF) Urine WBC 1 /HPF (0-5/HPF) Urine Squamous Epithelial Cells Many /LPF (</=FEW) Urine Bacteria Negative /HPF (NONE-FEW) Urine Mucus None /HPF (NONE-FEW) Chemistry Test 06/03/18 00:00 06/03/18 10:52 06/03/18 11:37 06/03/18 11:55 Thyroid Stimulating Hormone (TSH) 1.31 uIU/ml (0.46-4.68) Prothrombin Time 12.1 seconds (12.0-14.4) Prothromb Time International Ratio 0.90 Activated Partial Thromboplast Time 28 seconds (23-35) Lactate 1.3 mmol/L (0.7-2.1) Amylase Level 46 U/L (0-110) Lipase 40 U/L (23-300) Serum Alcohol < 10 mg/dl Ammonia < 9 UMOL/L (9-33) Urine Color Yellow Urine Clarity Clear Urine pH 6.0 pH (4.8-9.5) Urine Specific [place] 1.016 Urine Protein Negative mg/dL (NEGATIVE) Urine Glucose (UA) Negative mg/dL (NEGATIVE) Urine Ketones Trace mg/dL (NEGATIVE) Urine Blood Negative (NEGATIVE) Urine Nitrite Negative (NEGATIVE) Urine Bilirubin Negative (NEGATIVE) Urine Urobilinogen Negative mg/dL (0.2-1.9) Urine Leukocyte Esterase Negative (NEGATIVE) Urine RBC 1 /HPF (0-2/HPF) Urine WBC 1 /HPF (0-5/HPF) Urine Squamous Epithelial Cells Many /LPF (</=FEW) Urine Bacteria Negative /HPF (NONE-FEW) Urine Mucus None /HPF (NONE-FEW) Coagulation Test 06/03/18 10:52 Prothrombin Time 12.1 seconds Prothromb Time International Ratio 0.90 Activated Partial Thromboplast Time 28 seconds Toxicology Test 06/03/18 10:52 Serum Alcohol < 10 mg/dl Urinalysis Test 06/03/18 11:55 Urine Color Yellow Urine Clarity Clear Urine pH 6.0 pH (4.8-9.5) Urine Specific [place] 1.016 Urine Protein Negative mg/dL (NEGATIVE) Urine Glucose (UA) Negative mg/dL (NEGATIVE) Urine Ketones Trace mg/dL (NEGATIVE) Urine Blood Negative (NEGATIVE) Urine Nitrite Negative (NEGATIVE) Urine Bilirubin Negative (NEGATIVE) Urine Urobilinogen Negative mg/dL (0.2-1.9) Urine Leukocyte Esterase Negative (NEGATIVE) Urine RBC 1 /HPF (0-2/HPF) Urine WBC 1 /HPF (0-5/HPF) Urine Squamous Epithelial Cells Many /LPF (</=FEW) Urine Bacteria Negative /HPF (NONE-FEW) Urine Mucus None /HPF (NONE-FEW) EKG/Imaging EKG Interpretation PATIENT NAME: CL WHEELER : [id number] MR: [id number] V: [id number] EXAM DATE: ORDERING PHYSICIAN: MARGAUX PEREZ TECHNOLOGIST: CAROL Test Reason : Blood Pressure : / mmHG Vent. Rate : 101 BPM Atrial Rate : 101 BPM P-R Int : 112 ms QRS Dur : 074 ms QT Int : 352 ms P-R-T Axes : 060 039 022 degrees QTc Int : 456 ms Sinus tachycardia with premature supraventricular complexes No ST-T abnormalities When compared with ECG of 25-JUN-2016 07:41, premature supraventricular complexes are now present Nonspecific T wave abnormality, improved in Inferior leads Nonspecific T wave abnormality no longer evident in Anterior leads Confirmed by MARGAUX PEREZ ([id number]) on 06/04/2018 12:09:52 AM Referred By: Confirmed By:MARGAUX PEREZ Imaging PATIENT NAME: Cl Wheeler : 1940 MR: [id number] V: [id number] EXAM DATE: [id number] ORDERING PHYSICIAN: ROGER DE JESUS TECHNOLOGIST: [place] [facility] [place] Cl [place] : 1940 Visit/Account:[id number] Date of Sevice: 06/03/2018 CHEST SINGLE AP Indication: Shortness of breath.. Comparison: 05/31/2018. Findings: Cardiomediastinal silhouette and pulmonary vessels within normal limits. There is no focal infiltrate or lobar consolidation. Mild emphysematous changes are again present. No pneumothorax or pleural effusion. Tiny stable nodules in the lateral right upper lobe. No new nodules. Chronic interstitial changes. Upper abdomen is unremarkable. No acute bony abnormality. Breast implants with peripheral calcifications are again identified. IMPRESSION: 1. Stable chest without acute cardiopulmonary disease. [place] [facility] [place] Cl [place] : 1940 Visit/Account:[id number] Date of Sevice: 06/03/2018 EXAMINATION: CT Head without intravenous contrast CT Cervical spine without intravenous contrast HISTORY: Trauma. TECHNIQUE: Head: Axial images were obtained from the skull base to the vertex without intravenous contrast. Sagittal and coronal reformatted images are also submitted. Cervical spine: Axial images were obtained from the skull base through the upper thoracic spine without IV contrast administration. Coronal and sagittal reformatted images were obtained from the axial source data. One of the following dose optimization techniques was utilized in the performance of this exam: Automated exposure control; adjustment of the mA and/or kV according to the patient's size; or use of an iterative reconstruction technique. Specific details can be referenced in the facility's radiology CT exam operational policy. COMPARISON: 05/31/2018. FINDINGS: HEAD: Brain volume: Normal. Ventricles: Negative. Acute ischemic changes: None. Hemorrhage: None. Masses / edema: None. Diaz-white: Negative. White matter: Negative. Vessels: Negative. Extra-axial: Negative. Calvarium / skull base: Negative. Visualized sinuses / orbits: Chronic left sphenoid sinusitis. Mild bilateral temporomandibular joint arthritis. Partially opacified left mastoid air cells. No significant change. CERVICAL SPINE: Alignment: 4 mm of anterior listhesis of C3 over C4. Mild convex leftward curvature. Cranio-cervical junction: Moderate degenerative changes. Normal alignment. Vertebral bodies: Degenerative endplate changes at a few levels. Otherwise negative. Posterior elements: Multilevel facet hypertrophy, right worse than left. Hardware: None. Disc Spaces: Multilevel degenerative disc disease. Soft tissues: No prevertebral soft tissue swelling. Calcified plaque in the carotid bulbs, right worse than left. Visualized upper chest: Emphysema. IMPRESSION: 1. No acute intracranial abnormality. 2. No acute cervical spine fracture. PATIENT NAME: Cl Wheeler : 1940 MR: [id number] V: [id number] EXAM DATE: ORDERING PHYSICIAN: ROGER DE JESUS TECHNOLOGIST: [place] [facility] [place] Cl [place] : 1940 Visit/Account:[id number] Date of Sevice: 06/03/2018 EXAMINATION: CT Head without intravenous contrast CT Cervical spine without intravenous contrast HISTORY: Trauma. TECHNIQUE: Head: Axial images were obtained from the skull base to the vertex without intravenous contrast. Sagittal and coronal reformatted images are also submitted. Cervical spine: Axial images were obtained from the skull base through the upper thoracic spine without IV contrast administration. Coronal and sagittal reformatted images were obtained from the axial source data. One of the following dose optimization techniques was utilized in the performance of this exam: Automated exposure control; adjustment of the mA and/or kV according to the patient's size; or use of an iterative reconstruction technique. Specific details can be referenced in the facility's radiology CT exam operational policy. COMPARISON: 05/31/2018. FINDINGS: HEAD: Brain volume: Normal. Ventricles: Negative. Acute ischemic changes: None. Hemorrhage: None. Masses / edema: None. Diaz-white: Negative. White matter: Negative. Vessels: Negative. Extra-axial: Negative. Calvarium / skull base: Negative. Visualized sinuses / orbits: Chronic left sphenoid sinusitis. Mild bilateral temporomandibular joint arthritis. Partially opacified left mastoid air cells. No significant change. CERVICAL SPINE: Alignment: 4 mm of anterior listhesis of C3 over C4. Mild convex leftward curvature. Cranio-cervical junction: Moderate degenerative changes. Normal alignment. Vertebral bodies: Degenerative endplate changes at a few levels. Otherwise negative. Posterior elements: Multilevel facet hypertrophy, right worse than left. Hardware: None. Disc Spaces: Multilevel degenerative disc disease. Soft tissues: No prevertebral soft tissue swelling. Calcified plaque in the carotid bulbs, right worse than left. Visualized upper chest: Emphysema. IMPRESSION: 1. No acute intracranial abnormality. 2. No acute cervical spine fracture. ED Course/Re-evaluation ED Course Patient is a 78-year-old female here with complaints of increasing weakness in spite of treatment for UTI on Bactrim with recurrent falls. CT of the head and C-spine showed no acute fractures or intracranial bleeding. Chest x-ray was stable. EKG showed no ischemic changes. Patient was noted be hypoxic on exertion prompting admission to the hospitalist service with Dr. Espinosa. Patient was stable at time of admission Decision to Disposition Date: Jun 03, 2018 Decision to Disposition Time: 11:45 Depart Departure Latest Vital Signs Impression: Primary Impression: Acute exacerbation of chronic obstructive pulmonary disease (COPD) Additional Impression: Altered mental status Condition: Condition Unchanged Disposition: Admitted from ER Referrals: ОЛЬГА DOUGLAS MD (PCP) New Scripts Fluticasone Prop 50 Mcg Ns (FLONASE 50 MCG NS) 16 Gm [place].susp 1 SPRAYS NS QDAY for 30 Days, #1 BOT 0 Refills Prov: JAMES RIGGS 06/09/18 Problem Qualifiers ROGER DE JESUS DO Jun 03, 2018 10:20
[2018-06-03] MEDS ORDERED: NS(*) 0.9% 1000 ML BAG 1,000 ML IV ONE (10:30)
[2018-06-03 11:03] LABS: PLATELET COUNT, AUTOMATED 342 K/uL (150-450)
[2018-06-03 11:27] LABS: INR 0.9
--- NOTE | 2018-06-03 11:28 | RADIOLOGY IMAGING REPORT ---
FACILITY: [facility] [place] PATIENT NAME: Yareli Malcolm : 1940 MR: [id number] V: [id number] EXAM DATE: ORDERING PHYSICIAN: ROGER DE JESUS TECHNOLOGIST: Location: [facility] Patient: Yareli Malcolm : 1940 Visit/Account:[id number] Date of Sevice: 06/03/2018 EXAMINATION: CT Head without intravenous contrast CT Cervical spine without intravenous contrast HISTORY: Trauma. TECHNIQUE: Head: Axial images were obtained from the skull base to the vertex without intravenous contrast. Sa gittal and coronal reformatted images are also submitted. Cervical spine: Axial images were obtained from the skull base through the upper thoracic spine with out IV contrast administration. Coronal and sagittal reformatted images were obtained from the axial source data. One of the following dose optimization techniques was utilized in the performance of this exam: Autom ated exposure control; adjustment of the mA and/or kV according to the patient's size; or use of an i terative reconstruction technique. Specific details can be referenced in the facility's radiology C T exam operational policy. COMPARISON: 05/31/2018. FINDINGS: HEAD: Brain volume: Normal. Ventricles: Negative. Acute ischemic changes: None. Hemorrhage: None. Masses / edema: None. Diaz-white: Negative. White matter: Negative. Vessels: Negative. Extra-axial: Negative. Calvarium / skull base: Negative. Visualized sinuses / orbits: Chronic left sphenoid sinusitis. Mild bilateral temporomandibular joint arthritis. Partially opacified left mastoid air cells. No significant change. CERVICAL SPINE: Alignment: 4 mm of anterior listhesis of C3 over C4. Mild convex leftward curvature. Cranio-cervical junction: Moderate degenerative changes. Normal alignment. Vertebral bodies: Degenerative endplate changes at a few levels. Otherwise negative. Posterior elements: Multilevel facet hypertrophy, right worse than left. Hardware: None. Disc Spaces: Multilevel degenerative disc disease. Soft tissues: No prevertebral soft tissue swelling. Calcified plaque in the carotid bulbs, right wors e than left. Visualized upper chest: Emphysema. IMPRESSION: 1. No acute intracranial abnormality. 2. No acute cervical spine fracture. Report Dictated By: Jason Youssef MD at 06/03/2018 11:18 AM Report E-Signed By: Jason Youssef MD at 06/03/2018 11:24 AM WSN:[id number]
--- NOTE | 2018-06-03 11:29 | RADIOLOGY IMAGING REPORT ---
FACILITY: [facility] PATIENT NAME: Yareli Malcolm : 1940 MR: [id number] V: [id number] EXAM DATE: ORDERING PHYSICIAN: ROGER DE JESUS TECHNOLOGIST: Location: [facility] [place] Patient: Yareli Malcolm : 1940 Visit/Account:[id number] Date of Sevice: 06/03/2018 EXAMINATION: CT Head without intravenous contrast CT Cervical spine without intravenous contrast HISTORY: Trauma. TECHNIQUE: Head: Axial images were obtained from the skull base to the vertex without intravenous contrast. Sa gittal and coronal reformatted images are also submitted. Cervical spine: Axial images were obtained from the skull base through the upper thoracic spine with out IV contrast administration. Coronal and sagittal reformatted images were obtained from the axial source data. One of the following dose optimization techniques was utilized in the performance of this exam: Autom ated exposure control; adjustment of the mA and/or kV according to the patient's size; or use of an i terative reconstruction technique. Specific details can be referenced in the facility's radiology C T exam operational policy. COMPARISON: 05/31/2018. FINDINGS: HEAD: Brain volume: Normal. Ventricles: Negative. Acute ischemic changes: None. Hemorrhage: None. Masses / edema: None. Diaz-white: Negative. White matter: Negative. Vessels: Negative. Extra-axial: Negative. Calvarium / skull base: Negative. Visualized sinuses / orbits: Chronic left sphenoid sinusitis. Mild bilateral temporomandibular joint arthritis. Partially opacified left mastoid air cells. No significant change. CERVICAL SPINE: Alignment: 4 mm of anterior listhesis of C3 over C4. Mild convex leftward curvature. Cranio-cervical junction: Moderate degenerative changes. Normal alignment. Vertebral bodies: Degenerative endplate changes at a few levels. Otherwise negative. Posterior elements: Multilevel facet hypertrophy, right worse than left. Hardware: None. Disc Spaces: Multilevel degenerative disc disease. Soft tissues: No prevertebral soft tissue swelling. Calcified plaque in the carotid bulbs, right wors e than left. Visualized upper chest: Emphysema. IMPRESSION: 1. No acute intracranial abnormality. 2. No acute cervical spine fracture. Report Dictated By: Jason Youssef MD at 06/03/2018 11:18 AM Report E-Signed By: Jason Youssef MD at 06/03/2018 11:24 AM WSN:[id number]
[2018-06-03] MEDS ORDERED: ALBUTEROL/IPRATROPIUM 3 ML NEB NEB ONE (12:00)
--- NOTE | 2018-06-03 12:09 | RADIOLOGY IMAGING REPORT ---
[place] [facility] [place] NAME: Yareli Malcolm : 1940 MR: [id number] V: [id number] EXAM DATE: ORDERING PHYSICIAN: ROGER DE JESUS TECHNOLOGIST: Location: [facility] - [place] Patient: Yareli Malcolm : 1940 Visit/Account:[id number] Date of Sevice: 06/03/2018 CHEST SINGLE AP Indication: Shortness of breath.. Comparison: 05/31/2018. Findings: Cardiomediastinal silhouette and pulmonary vessels within normal limits. There is no focal infiltrate or lobar consolidation. Mild emphysematous changes are again present. No pneumothorax or pleural effusion. Tiny stable nodules in the lateral right upper lobe. No new nodules. Chronic interstitial changes. Up per abdomen is unremarkable. No acute bony abnormality. Breast implants with peripheral calcification s are again identified. IMPRESSION: 1. Stable chest without acute cardiopulmonary disease. Report Dictated By: Gabriele Schreiber at 06/03/2018 12:01 PM Report E-Signed By: Gabriele Schreiber at 06/03/2018 12:03 PM WSN:[id number]
[2018-06-03] MEDS ORDERED: VERA120T76 PO (13:21)
[2018-06-03] MEDS ORDERED: ALBUTEROL 2.5 MG/3 ML NEB NEB PRN (14:05)
--- NOTE | 2018-06-03 14:24 | EKG ---
FACILITY: [facility] PATIENT NAME: CL WHEELER : [id number] MR: [id number] V: [id number] EXAM DATE: ORDERING PHYSICIAN: MARGAUX PEREZ TECHNOLOGIST: CAROL Harrison Reason : Blood Pressure : / mmHG Vent. Rate : 101 BPM Atrial Rate : 101 BPM P-R Int : 112 ms QRS Dur : 074 ms QT Int : 352 ms P-R-T Axes : 060 039 022 degrees QTc Int : 456 ms Sinus tachycardia with premature supraventricular complexes No ST-T abnormalities When compared with ECG of 25-JUN-2016 07:41, premature supraventricular complexes are now present Nonspecific T wave abnormality, improved in Inferior leads Nonspecific T wave abnormality no longer evident in Anterior leads Confirmed by MARGAUX PEREZ ([id number]) on 06/04/2018 12:09:52 AM Referred By: Confirmed By:MARGAUX PEREZ
--- NOTE | 2018-06-03 14:32 | History & Physical ---
History of Present Illness History of Present Illness 78yo female with COPD who was brought to the ER for progressive weakness. For the last month, she and her daughter (who lives with her) have noticed progressive weakness and worsening morning confusion. The patient had a fall about 4 weeks ago and then again yesterday. Both times, she lost her footing. She denies LOC/cp/palpitations/dizziness/tunnel vision/focal weakness. 2 days ago, she brought to the ER and found to have a UTI. She was started on Bactrim. This morning, the patient couldn't get up, so they brought her to the ER. She denies cough/orthopnea/f/c/n/v/diarrhea. In the ER, she desaturated on her usual 3 liters of O2 with minimal exertion. History Problems: (1) GERD (gastroesophageal reflux disease) (2) OAB (overactive bladder) Status: Chronic (3) History of splenectomy (4) History of thyroidectomy (5) History of breast implant (6) History of hysterectomy (7) History of appendectomy (8) History of hernia surgery (9) Essential hypertension Status: Chronic (10) Hypothyroidism Status: Chronic (11) Hypertension Status: Acute (12) Chronic obstructive pulmonary disease Status: Chronic Home Meds Active Scripts Sulfamethoxazole/Trimet 800-160 Mg Tab (BACTRIM DS TABLET) 1 Each Tablet, 1 TAB PO Q12H for 7 Days, #14 TAB Prov:ROGER DE JESUS DO 05/31/18 Ondansetron 4 Mg Odt (ONDANSETRON 4 MG ODT) 4 Mg Tab.rapdis, 4 MG PO ONCE, #20 TAB Prov:ROGER DE JESUS DO 05/31/18 Tramadol Hcl (TRAMADOL HCL) 50 Mg Tablet, 50 MG PO Q6H PRN for PAIN, #20 TAB 0 Refills Prov:ROGER DE JESUS DO 05/31/18 Fluticasone Prop 50 Mcg Ns (FLONASE 50 MCG NS) 16 Gm Ferney.susp, 2 SPRAYS NS QDAY for 14 Days, #1 BOT 0 Refills Prov:LUL RAMÍREZ DNP, DUPLICATION SPECIALIST-BC 05/06/18 Albuterol Sulfate (VENTOLIN HFA) 18 Gm Inh, 2 PUFF INH Q4-6H PRN for SHORTNESS OF BREATH, #1 INH 6 Refills Prov:ОЛЬГА DOUGLAS MD 08/01/17 Ipratropium/Albuterol Sulfate (IPRAT-ALBUT 0.5-3(2.5) MG/3 ML) 3 Ml Ampul.neb, 3 ML IH QID PRN for SHORTNESS OF BREATH, #60 VIAL 5 Refills Prov:ОЛЬГА DOUGLAS MD 08/01/17 Aspirin (ASPIR 81) 81 Mg Tablet.dr, 81 MG PO QDAY, #90 TAB Prov:ЛОЬГА DOUGLAS MD 03/16/16 Reported Medications Verapamil Hcl (VERAPAMIL ER) 120 Mg Tablet.er, 1 CAP PO HS 06/03/18 Pnv#75/Iron Fum/Fa/Om3/Dha/Epa (ONE A DAY DHA PACK) 1 Each Combo..pkg, 1 CAP PO QDAY 05/31/18 Melatonin (MELATONIN) 10 Mg Capsule, 10 MG PO HS, CAPSULE 04/05/18 Levothyroxine Sodium (LEVOTHYROXINE SODIUM) 100 Mcg Tablet, 100 MCG PO QDAY, TAB 04/05/18 Oxygen (OXYGEN) Inha, 5 L INH, L 06/29/16 Budesonide (BUDESONIDE) 0.25 Mg/2 Ml Ampul.neb, 0.25 MG IH BID, ML 01/06/16 Formoterol Fumarate (PERFOROMIST) 20 Mcg/2 Ml Vial.neb, 20 MCG IH BID 01/06/16 Discontinued Scripts Verapamil Hcl (VERAPAMIL ER) 120 Mg Tablet.er, 1 TAB PO DAILY, #90 TAB Prov:ОЛЬГА DOUGLAS MD 01/06/18 Verapamil HCl (Verapamil Sr) 120 Mg Cap24h.pel, 1 TAB PO DAILY, #90 TAB 3 Refills Prov:ОЛЬГА DOUGLAS MD 01/01/18 Allergies: Coded Allergies: No Known Drug Allergies (Verified , 05/31/18) Patient History: Angina MOTHER FHx: cataracts FATHER Hx Smoking: Yes Smoking Status: Former Smoker Exposure to Second Hand Smoke?: Yes (SOME: FAMILY SMOKES OUTSIDE) Hx Alcohol Use: Yes (RARELY) Hx Substance Use Disorder: No Review of Systems All Systems Reviewed/Normal: Yes, Except as Noted Exam Vital Signs Vital Signs Date Time Temp Pulse Resp B/P (MAP) Pulse Ox O2 Delivery O2 Flow Rate FiO2 06/03/18 12:09 97 18 06/03/18 12:01 94 Nasal Cannula 4.5 06/03/18 12:00 139/83 (101) 06/03/18 10:16 98.3 General Appearance: Alert, Awake, No Acute Distress Neuro: No Gross deficits Eyes: PERRLA ENT: Moist Mucous Membranes, External Auditory Canals Clear, Oropharynx Clear Cardiovascular: Other (Irreg irreg, no m/r/g) Respiratory: Clear to Auscultation (Doesn't move air to the bases well) GI: Abd Soft and Non-Tender Extremities: No Edema Integumentary: No Jaundice, No Cyanosis Medical Decision Making Data Points Result Diagram: 06/03/18 1052 06/03/18 1052 Item Value Date Time Ammonia < 9 UMOL/L L 06/03/18 1137 Calcium Level 9.4 mg/dl 06/03/18 1052 Total Bilirubin 0.2 mg/dl 06/03/18 1052 Aspartate Amino Transf (AST/SGOT) 25 U/L 06/03/18 1052 Alanine Aminotransferase (ALT/SGPT) 19 U/L 06/03/18 1052 Alkaline Phosphatase 58 U/L 06/03/18 1052 Lactate 1.3 mmol/L 06/03/18 1052 Amylase Level 46 U/L 06/03/18 1052 Lipase 40 U/L 06/03/18 1052 Neutrophils (%) (Auto) 77.8 % H 06/03/18 1052 Lymphocytes (%) (Auto) 12.3 % L 06/03/18 1052 Monocytes (%) (Auto) 6.4 % 06/03/18 1052 Eosinophils (%) (Auto) 2.6 % 06/03/18 1052 Basophils (%) (Auto) 0.9 % 06/03/18 1052 Prothromb Time International Ratio 0.90 06/03/18 1052 Serum Alcohol < 10 mg/dl 06/03/18 1052 Urine Leukocyte Esterase Negative 06/03/18 1155 Urine RBC 1 /HPF 06/03/18 1155 Urine WBC 1 /HPF 06/03/18 1155 Urine Leukocyte Esterase Trace H 05/31/18 1217 Urine RBC 1 /HPF 05/31/18 1217 Urine WBC 8 /HPF 05/31/18 1217 Urine Nitrite Positive H 05/31/18 1217 Urine Squamous Epithelial Cells Many /LPF H 05/31/18 1217 Urine Squamous Epithelial Cells Many /LPF H 06/03/18 1155 Urine Bacteria Negative /HPF 06/03/18 1155 Urine Bacteria Few /HPF 05/31/18 1217 EKG / Imaging Imaging C Spine CT - 1. No acute intracranial abnormality. 2. No acute cervical spine fracture. CXR - 1. Stable chest without acute cardiopulmonary disease. Head CT - 1. No acute intracranial abnormality. 2. No acute cervical spine fracture. Assessment and Plan Problems: (1) Altered mental status Status: Acute Assessment & Plan: She presented with progressive weakness and morning confusion over the last couple of weeks. She has no focal deficits and no sign of infection. Will watch her O2 saturations overnight, telemetry and ask OT/PT to evaluate. She might need an MRI of brain if symptoms persist without an etiology. (2) Hypoxia Status: Acute Assessment & Plan: At rest, she is at her baseline O2 requirement of 3 liters. However, she desaturates with very little exertion. Lungs are clear, but not moving air well. She denies a cough, chest pain, or CHF symptoms. See above. (3) Chronic obstructive pulmonary disease Status: Chronic Assessment & Plan: Lungs clear, but not moving air well. Continue DuoNeb, Performist amnd Budesonide nebs. Albuterol prn. (4) OAB (overactive bladder) Status: Chronic Assessment & Plan: Not on any medication currently. Will check a PVR with the bladder scanner. Copies to: ОЛЬГА DOUGLAS MD ; Venous Thromboembolism Antithrombotics Is Pt On Any Antithrombotics?: No Exam Sepsis Risk: No Definite Risk MARGAUX PEREZ MD Jun 03, 2018 14:31
[2018-06-03 14:50] VITALS: BP 138/75
[2018-06-03] MEDS: ALBUTEROL/IPRATROPIUM 3 ML NEB NEB SCH (17:29)
[2018-06-03] MEDS: FORMOTEROL 20 MCG/2 ML NEB NEB SCH (17:37)
[2018-06-03 18:55] VITALS: BP 135/65
[2018-06-03] MEDS: MELATONIN 3 MG TAB PO SCH (21:23)
[2018-06-03] MEDS: VERAPAMIL HCL SR 120 MG TABCR PO SCH (21:23)
[2018-06-04] VITALS (7 sets, daily range): BP systolic 97–139; BP diastolic 52–67; Ht 165.1 cm; Wt 37.6 kg
[2018-06-04] MEDS: FORMOTEROL 20 MCG/2 ML NEB NEB SCH ×2 (05:13→17:01)
[2018-06-04] MEDS: BUDESONIDE 0.25 MG/2 ML INH SCH ×2 (05:13→17:01)
[2018-06-04] MEDS: ALBUTEROL/IPRATROPIUM 3 ML NEB NEB SCH ×3 (05:13→17:01)
[2018-06-04] MEDS: LEVOTHYROXINE SOD 0.1 MG TAB PO SCH (05:31)
[2018-06-04] MEDS: FLUTICASONE PROP 0.05% 16 GM SCH (09:25)
--- NOTE | 2018-06-04 10:11 | Hospitalist Progress Note ---
Subjective Progress Notes Subjective This patient was admitted for altered mental status. She had no acute events overnight. Patient Complains of: Cardiovascular: No: Chest Pain Respiratory: No: Shortness of Breath Physical Exam Vital Signs Date Time Temp Pulse Resp B/P (MAP) Pulse Ox O2 Delivery O2 Flow Rate FiO2 06/04/18 09:32 88 Nasal Cannula 6.0 06/04/18 08:38 99.8 107 119/66 (83) 06/04/18 05:17 22 Intake and Output 06/04/18 07:00 Intake Total 1000 ml Output Total 70 ml Balance 930 ml Intake Oral 0 ml IV Total 1000 ml Output Post Void Residual 70 ml Bladder Scan Volume Amount 11-30 ml # Voids 5 Cardiovascular: Regular Rate and Rhythm Respiratory: Clear to Auscultation Result Diagram: 06/03/18 1052 06/03/18 1052 Assessment and Plan Problems: (1) Altered mental status Status: Acute Assessment & Plan: She presented with progressive weakness and morning confusion over the last couple of weeks. She had no focal deficits and no sign of infection. A CT scan of the head was unremarkable. (2) Hypoxia Status: Acute Assessment & Plan: At rest, she is at her baseline O2 requirement of 3 liters. However, she desaturates with very little exertion. A Chest x-ray did not show any acute changes. (3) Chronic obstructive pulmonary disease Status: Chronic Assessment & Plan: She is on her chronic inhalers. (4) OAB (overactive bladder) Status: Chronic Assessment & Plan: Not on any medication currently. Exam Sepsis Risk: Sepsis Risk MARILU MARIE DO Jun 04, 2018 10:11
[2018-06-04] MEDS: IBUPROFEN 600 MG TAB PO PRN (12:11)
--- NOTE | 2018-06-04 14:52 | NUR ---
Physical Therapy Impression PT eval complete. Pt able to perform bed mobility with SBA and stand with CGA. Pt able to sit at EOB with SO2 maintaining >88% x5'. Pt will likely benefit from PT at SD. Physical Therapy Goals 1. Mod I bed mobility. 2. Mod I transfers. 3. Mod I gait x 50' with appropriate assistive device. 4. Ascend/descend 1 step SBA. Patient's Goals
--- NOTE | 2018-06-04 15:49 | NUR ---
Occupational Therapy Impression SBA bed mobility with HOB raised. CGA standing [id number] with RW. CGA/SBA side steps to HOB. SpO2 >88% throughout tx on 6L. Rec HH services. Occupational Therapy Goals 1) Pt will be Independent UB/LB dressing. 2) Pt will be Independent toileting. 3) Pt will be educated on energy conservation strategies. Patient's Goal
[2018-06-04] MEDS: VERAPAMIL HCL SR 120 MG TABCR PO SCH (20:26)
[2018-06-04] MEDS: MELATONIN 3 MG TAB PO SCH (20:26)
[2018-06-05 03:40] VITALS: BP 115/69
[2018-06-05] MEDS: FORMOTEROL 20 MCG/2 ML NEB NEB SCH ×2 (05:32→17:40)
[2018-06-05] MEDS: ALBUTEROL/IPRATROPIUM 3 ML NEB NEB SCH ×3 (05:32→17:40)
[2018-06-05] MEDS: BUDESONIDE 0.25 MG/2 ML INH SCH ×2 (05:32→17:40)
[2018-06-05] MEDS: LEVOTHYROXINE SOD 0.1 MG TAB PO SCH (05:44)
[2018-06-05 07:23] VITALS: BP 114/58
[2018-06-05] MEDS: IBUPROFEN 600 MG TAB PO PRN ×2 (07:31→20:24)
[2018-06-05] MEDS: FLUTICASONE PROP 0.05% 16 GM SCH (08:20)
[2018-06-05] MEDS ORDERED: INFLUENZA VIRUS VAC 0.5ML SYR IM ONLY ONE (09:00)
[2018-06-05 10:43] VITALS: BP 111/59
--- NOTE | 2018-06-05 11:41 | Hospitalist Progress Note ---
Subjective Progress Notes Subjective 78F admitted for hypoxia and AMS. SHARIF overnight, baseline mentation. Continues to become hypoxic with minimal exertion. Physical Exam Vital Signs Date Time Temp Pulse Resp B/P (MAP) Pulse Ox O2 Delivery O2 Flow Rate FiO2 06/05/18 11:19 91 18 06/05/18 11:11 91 Nasal Cannula 6.0 06/05/18 10:43 99.3 111/59 (76) Intake and Output 06/05/18 07:00 Intake Total 120 ml Balance 120 ml Intake Oral 120 ml # Voids 8 General Appearance: Alert, Awake, No Acute Distress Neuro: No Gross deficits Cardiovascular: Normal Rhythm & Peripheral Pulses Respiratory: Clear to Auscultation, Other (decreased breath sounds b/l) GI: Soft and Non-Tender Extremities: Soft and Non Tender, Warm, Pulses, Perfused Result Diagram: 06/03/18 1052 06/03/18 1052 Assessment and Plan Problems: (1) Altered mental status Status: Acute Assessment & Plan: She presented with progressive weakness and morning confusion over the last couple of weeks. She had no focal deficits and no sign of infection. A CT scan of the head was unremarkable. Resolved. (2) Hypoxia Status: Acute Assessment & Plan: At rest, she is at 4-5L. However, she desaturates with very little exertion. A Chest x-ray did not show any acute changes. Reports she previously increased to 5L at home on her own but was instructed to turn it down again to 3L. Suspect worsening of her chronic hypoxia. (3) Chronic obstructive pulmonary disease Status: Chronic Assessment & Plan: She is on her chronic inhalers. (4) OAB (overactive bladder) Status: Chronic Assessment & Plan: Not on any medication currently. Exam Sepsis Risk: No Definite Risk GALAVIZ SHARI MARRERO DO Jun 05, 2018 11:41
--- NOTE | 2018-06-05 11:57 | NUR ---
Physical Therapy Impression PT/OT co treat for patient safety, with PT capturing minutes today. Pt's RN reports pt with increased O2 needs intermittently this morning. Pt on 6L O2 at rest, increased to 8L for mobility. Pt completed transfers and ambulation x25' with hand held assistance, wtih small LOB with turn. Pt may benefit from RW, but reports that a walker will not fit in her home. SPO2 dropped to 82% with mobility, requiring 12L and cues for deep breathing in order to return to WNL. At end of session, SPO2 WNL on 6L O2. Physical Therapy Goals 1. Mod I bed mobility. 2. Mod I transfers. 3. Mod I gait x 50' with appropriate assistive device. 4. Ascend/descend 1 step SBA. Patient's Goals
--- NOTE | 2018-06-05 13:48 | NUR ---
Occupational Therapy Impression [place] with PT (PT to capture billable minutes). Pt. ambulated 25 feet with hand held assistance on 8 L of O2 with SPO2 dropping to 82%. Pt. ready to d/c with HH care when cleared medically and by PT services. Pt. provided with information on where to acquire bath chair and/or FWW for home use. D/C OT services. Occupational Therapy Goals 1) Pt will be Independent UB/LB dressing. 2) Pt will be Independent toileting. 3) Pt will be educated on energy conservation stratagies. Patient's Goal
--- NOTE | 2018-06-05 16:13 | Medical Nutrition Therapy ---
Nutrition Anthropometrics Height (Inches): 65.00 Height (Calculated Centimeters: 165.099675 Weight (Pounds): 83 Weight (Calculated Kilograms): 37.960 Emigdio Nutrition Score: Probably Inadequate Emigdio Nutrition Risk Score: 16 Dietary Referral Nutrition Risk Factors: Significantly Underwt. Nutrition Risk Comment: Physical Findings Physical Appearance: Underweight BMI<19 Skin Appearance Skin Appearance: Edema Edema Location Modifier: Edema Location: Type of Edema: Degree of Edema: Gastrointestinal Symptoms GI Symtoms: Tube Present: Bowel Sounds: Recent Bowel Pattern: Stool Characteristics: Nutrition/Food History Decreased Appetite Poor Skipped Meals: No Nutritional Diagnosis Nutritional Risk Acuity 1: %IBW < 74% Past Medical History: HTN, COPD, hypothyroid Nutritional Acuity: 1-High Nutrition Intervention: Cont diet as ordered, Encourage intake, Between meal supplement Additional Diet Restrictions: OFFER NUTR SUPPLEMENTS (BOOST MILKSHAKE) Diet Comment To [facility]: OFFER BOOST AND WHOLE MILK TO DRINK Nutritional Education Nutrition Education Topic: Other Learning Readiness: Interested Teaching Methods: Discussion, Handout Response to Teaching: Verbalize understanding Teaching Recipient: Patient Nutrition Counselin/25 Provided pt with information on increasing protein and calorie intake to help with malnutrition. Nutrition Monitoring & Eval Nutrition Goals: Eat 50-100% Meal, Drink > 2 liters/day RD Patient Assessment Time: [address] Assessment Type: RD Assessment Patient Nutrition Acuity: 1-High Follow Up Date: Jun 08, 2018 Nutritional Comment: 06/05 Pt admitted for AMS. Pt has hx of COPD. BMI is in underwt range with wt 66% of IBWR. Alb WNR at 4, Hct/hgb low at 32.6/20.9. Pt on regular diet and eating 0-5% of meals. Will offer nutr supplment to increase kcal and protein intake. Will conduct nutrition physical assessment if pt allows. Will cont to monitor and encourage intake. BK 06/05 Conducted a nutrition focused physical assessment and found that pt is mildly malnourished. Pt has mild subcutaneous fat loss in upper arm region (some depth when pinched). Pt has Severe muscle loss in her clavicle and acromion process region (Protrustion is prominent). Pt has mild muscle loss in dorsal hand (slightly depressed). Pt states she has always been thin, but is feeling weaker than usual. Provided pt with handouts and discussed ways to increase protein and calorie intake to help with malnutrition. Will continue to encourage and monitor intake. JAMAL WANG Jun 05, 2018 09:37
[2018-06-05 18:45] VITALS: BP 131/69
[2018-06-05] MEDS: VERAPAMIL HCL SR 120 MG TABCR PO SCH (20:24)
[2018-06-05] MEDS: MELATONIN 3 MG TAB PO SCH (20:24)
[2018-06-05 23:45] VITALS: BP 107/52
[2018-06-06 03:38] VITALS: BP 94/51
[2018-06-06] MEDS: LEVOTHYROXINE SOD 0.1 MG TAB PO SCH (05:29)
[2018-06-06] MEDS: BUDESONIDE 0.25 MG/2 ML INH SCH ×2 (05:50→18:02)
[2018-06-06] MEDS: FORMOTEROL 20 MCG/2 ML NEB NEB SCH ×2 (05:50→18:03)
[2018-06-06] MEDS: ALBUTEROL/IPRATROPIUM 3 ML NEB NEB SCH ×3 (05:50→18:03)
[2018-06-06 06:51] VITALS: BP 119/65
[2018-06-06] MEDS: FLUTICASONE PROP 0.05% 16 GM SCH (09:32)
--- NOTE | 2018-06-06 11:05 | Hospitalist Progress Note ---
Subjective Progress Notes Subjective The patient states she was on several inhalers at home in the past and hasn't filled them for a year. She does have a "red" inhaler that she believes is albuterol and has a nebulizer treatment. She believes that is also albuterol. She has been using Perforomist per nebulizer at home but has not been on any steroid inhalers or nebulizers. She admits that she is not always compliant with her meds and her son confirms this. Physical Exam Vital Signs Date Time Temp Pulse Resp B/P (MAP) Pulse Ox O2 Delivery O2 Flow Rate FiO2 06/06/18 07:22 89 Nasal Cannula 5.0 06/06/18 06:51 98.2 93 16 119/65 (83) Intake and Output 06/06/18 07:00 Intake Total 576 ml Balance 576 ml Intake Oral 576 ml # Voids 2 General Appearance: Alert, Awake, No Acute Distress Neuro: No Gross deficits Cardiovascular: Regular Rate and Rhythm Respiratory: Other (Diminished breath sounds throughout without rales, rhonchi or wheezing.) GI: Soft and Non-Tender Extremities: Warm, Perfused Psych: Appropriate Mood & Affect Result Diagram: 06/03/18 1052 06/03/18 1052 Assessment and Plan Problems: (1) Altered mental status Status: Acute Assessment & Plan: She presented with progressive weakness and morning confusion over the last couple of weeks. She had no focal deficits and no sign of infection. A CT scan of the head was unremarkable. Resolved. (2) Hypoxia Status: Acute Assessment & Plan: At rest, she is at 4-5L. However, she desaturates with very little exertion and requires as much as 12L. A Chest x-ray did not show any acu te changes. Reports she previously increased to 5L at home on her own but was instructed to turn it down again to 3L. Suspect worsening of her chronic hypoxia. (3) Chronic obstructive pulmonary disease Status: Chronic Assessment & Plan: She had not filled some of her inhalers for over a year and was noncompliant with her others. She is back on the medications she should be on at home. (4) OAB (overactive bladder) Status: Chronic Assessment & Plan: Not on any medication currently. Time Spent on Plan of Care: < 30 min Exam Sepsis Risk: No Definite Risk CL FARLEY MD Jun 06, 2018 11:05
[2018-06-06 11:35] VITALS: BP 126/85
[2018-06-06] MEDS ORDERED: LEVO75TA73 PO (12:53)
[2018-06-06 14:32] VITALS: BP 128/62
--- NOTE | 2018-06-06 15:00 | NUR ---
Physical Therapy Impression Patient ambulated with FWW ~28 feet with a seated rest break then another 40 feet with a seated rest break then another 50 feet. Patient was on 10L of oxygen but did stay at 94% her heart rate got up to 112 bpm.Patient was SBA with bed mobs and transfers. Physical Therapy Goals 1. Mod I bed mobility. 2. Mod I transfers. 3. Mod I gait x 50' with appropriate assistive device. 4. Ascend/descend 1 step SBA. Patient's Goals
--- NOTE | 2018-06-06 15:00 | Medical Nutrition Therapy ---
Nutrition Anthropometrics Height (Inches): 65.00 Height (Calculated Centimeters: 165.335766 Weight (Pounds): 83 Weight (Calculated Kilograms): 37.960 Emigdio Nutrition Score: Probably Inadequate Emigdio Nutrition Risk Score: 16 Dietary Referral Nutrition Risk Factors: Significantly Underwt. Nutrition Risk Comment: Physical Findings Physical Appearance: Underweight BMI<19 Skin Appearance Skin Appearance: Edema Edema Location Modifier: Edema Location: Type of Edema: Degree of Edema: Gastrointestinal Symptoms GI Symtoms: Tube Present: Bowel Sounds: Recent Bowel Pattern: Stool Characteristics: Nutritional Diagnosis Nutritional Risk Acuity 1: %IBW < 74%, Malnutrition (mild malnutrition per nutr physical assessment) Past Medical History: HTN, COPD, hypothyroid Nutritional Acuity: 1-High Nutrition Diagnosis: Under-weight Nutrition Etiology: Physiological Causes Nutrition Problem/Etiology/Sym: AEB BMI 13.8 with mild malnutriton per nutrtion physical assessment Energy Requirement: 1110 (MSJ) Protein Requirement: 37 (1gm/kg) Fluid Requirement: 1110 (1ml/kcal) Diet Type: Diet as Tolerated ANNIE/REG Nutrition Intervention: Cont diet as ordered, Encourage intake, Between meal supplement, Assist w/meals Additional Diet Restrictions: OFFER NUTR SUPPLEMENTS (BOOST MILKSHAKE) Diet Comment To [facility]: OFFER BOOST AND WHOLE MILK TO DRINK Nutrition Monitoring & Eval Nutrition Goals: Eat 75-100% Meal Nutrition Follow-Up: Poor Intake RD Patient Assessment Time: [address] Assessment Type: RD Re-Assessment Patient Nutrition Acuity: 1-High Follow Up Date: Jun 09, 2018 Nutritional Comment: 06/05 Pt admitted for AMS. Pt has hx of COPD. BMI is in underwt range with wt 66% of IBWR. Alb WNR at 4, Hct/hgb low at 32.6/20.9. Pt on regular diet and eating 0-5% of meals. Will offer nutr supplment to increase kcal and protein intake. Will conduct nutrition physical assessment if pt allows. Will cont to monitor and encourage intake. BK 06/05 Conducted a nutrition focused physical assessment and found that pt is mildly malnourished. Pt has mild subcutaneous fat loss in upper arm region (some depth when pinched). Pt has Severe muscle loss in her clavicle and acromion process region (Protrustion is prominent). Pt has mild muscle loss in dorsal hand (slightly depressed). Pt states she has always been thin, but is feeling weaker than usual. Provided pt with handouts and discussed ways to increase protein and calorie intake to help with malnutrition. Will continue to encourage and monitor intake. CD 06/06 Pt cont on regular diet. Intake average 38% with occasional nutritional supplement consumed. Cont to offer nutr supplment and encourage intake. ESSENCE JOHNSTON Jun 06, 2018 15:00
[2018-06-06 18:45] VITALS: BP 151/84
[2018-06-06] MEDS: MELATONIN 3 MG TAB PO SCH (20:55)
[2018-06-06] MEDS: VERAPAMIL HCL SR 120 MG TABCR PO SCH (20:55)
[2018-06-06 22:42] VITALS: BP 139/75
[2018-06-07] MEDS: LEVOTHYROXINE SOD 0.1 MG TAB PO SCH (06:03)
[2018-06-07] MEDS: IBUPROFEN 600 MG TAB PO PRN (06:03)
[2018-06-07] MEDS: ALBUTEROL/IPRATROPIUM 3 ML NEB NEB SCH ×3 (06:06→17:32)
[2018-06-07] MEDS: BUDESONIDE 0.25 MG/2 ML INH SCH ×2 (06:06→17:32)
[2018-06-07] MEDS: FORMOTEROL 20 MCG/2 ML NEB NEB SCH ×2 (06:06→17:32)
[2018-06-07 06:46] VITALS: BP 126/71
[2018-06-07] MEDS: FLUTICASONE PROP 0.05% 16 GM SCH (08:30)
--- NOTE | 2018-06-07 10:14 | Hospitalist Progress Note ---
Subjective Progress Notes Subjective This patient was admitted for hypoxia and altered mental status. She had no acute events overnight. Patient Complains of: Cardiovascular: No: Chest Pain Respiratory: No: Shortness of Breath Physical Exam Vital Signs Date Time Temp Pulse Resp B/P (MAP) Pulse Ox O2 Delivery O2 Flow Rate FiO2 06/07/18 07:54 90 Nasal Cannula 3.0 06/07/18 06:46 98.5 104 20 126/71 (89) Intake and Output 06/07/18 07:00 Intake Total 480 ml Balance 480 ml Intake Oral 480 ml # Voids 5 Cardiovascular: Regular Rate and Rhythm Respiratory: Clear to Auscultation Result Diagram: 06/03/18 1052 06/03/18 1052 Assessment and Plan Problems: (1) Altered mental status Status: Acute Assessment & Plan: She presented with progressive weakness and morning confu benito over the last couple of weeks. She had no focal deficits and no sign of infection. A CT scan of the head was unremarkable. (2) Hypoxia Status: Acute Assessment & Plan: At rest, she is at 4-5L. However, she desaturates with very little exertion and requires as much as 12L. A Chest x-ray did not show any acute changes. Reports she previously increased to 5L at home on her own but was instructed to turn it down again to 3L. Suspect worsening of her chronic hypoxia. (3) Chronic obstructive pulmonary disease Status: Chronic Assessment & Plan: She had not filled some of her inhalers for over a year and was noncompliant with her others. She is back on the medications she should be on at home. (4) OAB (overactive bladder) Status: Chronic Assessment & Plan: Not on any medication currently. Exam Sepsis Risk: No Definite Risk MARILU MARIE DO Jun 07, 2018 10:14
--- NOTE | 2018-06-07 11:51 | NUR ---
Physical Therapy Impression Pt reports that she does not plan to use RW at home because her home is too small. Pt completed bed mobility with Radha. Upon standing with no AD, pt with major LOB, requiring her to sit back on bed. Ambulation x60' with noAD and close SBA/CGA provided. Pt with good tolerance to asc/desc platform stairs with railing. Rec that pt use RW in hospital setting and [facility] PT services upon d.c. SPO2 dropped to 81% on 6L with mobility, PT increased O2 to 10L at rest and SpO2 returned to WNL, pt left on 5L. Physical Therapy Goals 1. Mod I bed mobility. 2. Mod I transfers. 3. Mod I gait x 50' with appropriate assistive device. 4. Ascend/descend 1 step SBA. Patient's Goals
[2018-06-07 14:37] VITALS: BP 136/75
[2018-06-07 18:07] VITALS: BP 164/82
[2018-06-07] MEDS: VERAPAMIL HCL SR 120 MG TABCR PO SCH (21:19)
[2018-06-07] MEDS: MELATONIN 3 MG TAB PO SCH (21:19)
[2018-06-07 23:21] VITALS: BP 112/58
[2018-06-08 03:22] VITALS: BP 115/70
[2018-06-08] MEDS: LEVOTHYROXINE SOD 0.1 MG TAB PO SCH (05:58)
[2018-06-08] MEDS ORDERED: ALBUTEROL/IPRATROPIUM 3 ML NEB NEB SCH (06:00)
[2018-06-08] MEDS: FORMOTEROL 20 MCG/2 ML NEB NEB SCH ×2 (06:10→17:35)
[2018-06-08] MEDS: BUDESONIDE 0.25 MG/2 ML INH SCH ×2 (06:10→17:35)
[2018-06-08 06:49] VITALS: BP 121/66
[2018-06-08] MEDS: FLUTICASONE PROP 0.05% 16 GM SCH (08:26)
[2018-06-08] MEDS ORDERED: LEVALBUTEROL 0.63 MG/3 ML NEB NEB PRN (09:20)
[2018-06-08] MEDS ORDERED: LEVALBUTEROL 1.25 MG/3 ML NEB NEB PRN (09:20)
--- NOTE | 2018-06-08 11:04 | Hospitalist Progress Note ---
Subjective Progress Notes Subjective She reports some "double vision" this AM after DuoNeb. No AYERS/N/V/dizziness. Physical Exam Vital Signs Date Time Temp Pulse Resp B/P (MAP) Pulse Ox O2 Delivery O2 Flow Rate FiO2 06/08/18 08:20 94 Nasal Cannula 4.0 06/08/18 07:13 95 18 06/08/18 06:49 97.7 121/66 (84) Intake and Output 06/08/18 07:00 Intake Total 570 ml Balance 570 ml Intake Oral 570 ml # Voids 9 General Appearance: Alert, Awake Neuro: No Gross deficits Eyes: PERRLA, Other (No nystagmus noted) Cardiovascular: Regular Rate and Rhythm Respiratory: Other (decreased breath sounds bilaterally/no rales or wheezes noted) Extremities: Warm, Perfused Psych: Alert & Oriented X3 Assessment and Plan Problems: (1) Double vision Status: Acute Assessment & Plan: No other acute findings/symptoms. Question if related to the ipratropium. Will change from DuoNeb to Xopenex. Monitor. Consider MRI if not resolving. (2) Altered mental status Status: Acute Assessment & Plan: Resolved. She presented with progressive weakness and morning confusion over the last couple of weeks. She had no focal deficits and no sign of infection. CT scan of the head was unremarkable. (3) Hypoxia Status: Acute Assessment & Plan: At rest, she is requiring 4-5L. However, she desaturates with very little exertion and requires as much as 8-12L. A Chest x-ray did not show any acute changes. Reports she previously increased to 5L at home on her own, but was instructed to turn it down again to 3L. Suspect worsening of her chronic lung disease with hypoxia. Will need to work with her oxygen provider to get system to deliver higher flows with activities. (4) Chronic obstructive pulmonary disease Status: Chronic Assessment & Plan: She had not filled some of her inhalers for over a year and was noncompliant with her others. She is now back on the medications she should have been on at home. (5) OAB (overactive bladder) Status: Chronic Assessment & Plan: Not on any medication currently. Exam Sepsis Risk: No Definite Risk JEFE FARLEY MD Jun 08, 2018 11:04
[2018-06-08 13:40] VITALS: BP 140/80
[2018-06-08 18:39] VITALS: BP 140/71
[2018-06-08] MEDS: MELATONIN 3 MG TAB PO SCH (20:38)
[2018-06-08] MEDS: VERAPAMIL HCL SR 120 MG TABCR PO SCH (20:38)
[2018-06-09 03:30] VITALS: BP 113/64
[2018-06-09] MEDS: BUDESONIDE 0.25 MG/2 ML INH SCH (05:38)
[2018-06-09] MEDS: FORMOTEROL 20 MCG/2 ML NEB NEB SCH (05:38)
[2018-06-09 05:56] LABS: PLATELET COUNT, AUTOMATED 473 K/uL (150-450)
[2018-06-09] MEDS: LEVOTHYROXINE SOD 0.1 MG TAB PO SCH (05:56)
[2018-06-09 08:43] VITALS: BP 127/69
[2018-06-09] MEDS: FLUTICASONE PROP 0.05% 16 GM SCH (08:45)
--- NOTE | 2018-06-09 10:36 | Medical Nutrition Therapy ---
Nutrition Anthropometrics Height (Inches): 65.00 Height (Calculated Centimeters: 165.495404 Weight (Pounds): 83 Weight (Calculated Kilograms): 37.960 Emigdio Nutrition Score: Probably Inadequate Emigdio Nutrition Risk Score: 16 Dietary Referral Nutrition Risk Factors: Significantly Underwt. Nutrition Risk Comment: Physical Findings Physical Appearance: Underweight BMI<19 Skin Appearance Skin Appearance: Edema Edema Location Modifier: Edema Location: Type of Edema: Degree of Edema: Gastrointestinal Symptoms GI Symtoms: Tube Present: Bowel Sounds: Recent Bowel Pattern: Stool Characteristics: Nutritional Diagnosis Nutritional Risk Acuity 1: %IBW < 74%, Malnutrition (mild malnutrition per nutr physical assessment) Past Medical History: HTN, COPD, hypothyroid Nutritional Acuity: 1-High Nutrition Diagnosis: Under-weight Nutrition Etiology: Physiological Causes Nutrition Problem/Etiology/Sym: AEB BMI 13.8 with mild malnutriton per nutrtion physical assessment Energy Requirement: 1110 (MSJ) Protein Requirement: 37 (1gm/kg) Fluid Requirement: 1110 (1ml/kcal) Diet Type: Diet as Tolerated ANNIE/REG Nutrition Intervention: Cont diet as ordered, Encourage intake, Between meal supplement, Assist w/meals Additional Diet Restrictions: OFFER NUTR SUPPLEMENTS (BOOST MILKSHAKE) Diet Comment To RSA: OFFER BOOST AND WHOLE MILK TO DRINK Nutrition Monitoring & Eval Nutrition Goals: Eat 50-100% Meal Nutrition Follow-Up: Poor Intake RD Patient Assessment Time: [address] Assessment Type: RD Re-Assessment Patient Nutrition Acuity: 1-High Follow Up Date: June 12, 2018 Nutritional Comment: 06/05 Pt admitted for AMS. Pt has hx of COPD. BMI is in underwt range with wt 66% of IBWR. Alb WNR at 4, Hct/hgb low at 32.6/20.9. Pt on regular diet and eating 0-5% of meals. Will offer nutr supplment to increase kcal and protein intake. Will conduct nutrition physical assessment if pt allows. Will cont to monitor and encourage intake. CHENCHO 06/05 Conducted a nutrition focused physical assessment and found that pt is mildly malnourished. Pt has mild subcutaneous fat loss in upper arm region (some depth when pinched). Pt has Severe muscle loss in her clavicle and acromion process region (Protrustion is prominent). Pt has mild muscle loss in dorsal hand (slightly depressed). Pt states she has always been thin, but is feeling weaker than usual. Provided pt with handouts and discussed ways to increase protein and calorie intake to help with malnutrition. Will continue to encourage and monitor intake. CD 06/06 Pt cont on regular diet. Intake average 38% with occasional nutritional supplement consumed. Cont to offer nutr supplment and encourage intake. BK 06/09 Pt cont on regular diet. Intake average 30% with up to 1 nutr supplment/day consumed. al declnied to 3.4. Will cont to monitor and encourage intake. ESSENCE JOHNSTON Jun 09, 2018 10:36
--- NOTE | 2018-06-09 10:38 | Hospitalist Progress Note ---
Subjective Progress Notes Subjective Breathing better from admission. She developed double vision this morning after a breathing treatment. If she turns her head a bit, then problem resolves. Physical Exam Vital Signs Date Time Temp Pulse Resp B/P (MAP) Pulse Ox O2 Delivery O2 Flow Rate FiO2 06/09/18 08:43 97.7 95 20 127/69 (88) 90 Nasal Cannula 3.0 Intake and Output 06/09/18 06:59 Intake Total 120 ml Balance 120 ml Intake Oral 120 ml # Voids 9 General Appearance: Alert, Awake, No Acute Distress Neuro: No Gross deficits, Other (diplopia resolves with closing either eye. No diplopia for objects less than 0.5 meters from eyes. EOMI. Light reflection appears to be the in the same location on the cornea bilaterally) Respiratory: Clear to Auscultation Result Diagram: 06/09/1852406/09/18524 Assessment and Plan Problems: (1) Double vision Status: Acute Assessment & Plan: No other acute findings/symptoms. Question if related to the nebs. She had the same problem with DuoNeb about a year ago, so stopped it. Will get an MRI to rule out a central problem. (2) Altered mental status Status: Acute Assessment & Plan: Resolved. She presented with progressive weakness and morning confusion over the last couple of weeks. She had no focal deficits and no sign of infection. CT scan of the head was unremarkable. (3) Hypoxia Status: Acute Assessment & Plan: At rest, she is requiring 3-4L. However, she desaturates with very little exertion and requires as much as 7-8L. A Chest x-ray did not show any acute changes. Reports she previously increased to 5L at home on her own, but was instructed to turn it down again to 3L. Suspect worsening of her chronic lung disease with hypoxia. Will need to work with her oxygen provider to get system to deliver higher flows with activities. (4) Chronic obstructive pulmonary disease Status: Chronic Assessment & Plan: She had not filled some of her inhalers for over a year and was noncompliant with her others. She is now back on the medications she should have been on at home. (5) OAB (overactive bladder) Status: Chronic Assessment & Plan: Not on any medication currently. Exam Sepsis Risk: No Definite Risk MARGAUX PEREZ MD Jun 09, 2018 10:38
--- NOTE | 2018-06-09 11:35 | RADIOLOGY IMAGING REPORT ---
FACILITY: [facility] - [place], [place] PATIENT NAME: Yareli Malcolm : 1940 MR: [id number] V: [id number] EXAM DATE: [id number] ORDERING PHYSICIAN: MARGAUX PEREZ TECHNOLOGIST: Location: [facility] Patient: Yareli Malcolm : 1940 Visit/Account:[id number] Date of Sevice: 06/09/2018 EXAMINATION: MRI Brain without intravenous contrast HISTORY: Double vision. COMPARISON: Noncontrast head CT dated 06/03/2018. Brain MRI dated 08/19/2017. TECHNIQUE: Multi-planar, multi-sequence brain MRI was performed without IV contrast administration. FINDINGS: Brain volume: Mild generalized volume loss. Sagittal midline structures: Negative. Ventricles: Negative. Acute ischemic changes: None. Hemorrhage: None. Masses / edema: None. Diaz-white: Negative. White matter: A few T2/FLAIR hyperintensities in the deep white matter bilaterally. Vessels: Negative. Extra-axial: Negative. Calvarium / scalp: Negative. Skull base: Negative. Visualized sinuses / orbits: Left mastoid effusion. Leftward nasal septal deviation. Visualized upper neck: Negative. IMPRESSION: 1. No acute intracranial abnormality. 2. Stable mild chronic white matter disease, nonspecific but most likely represents chronic microvas cular ischemia. 3. Left mastoid effusion. Leftward nasal septal deviation. Report Dictated By: Jason Youssef MD at 06/09/2018 11:27 AM Report E-Signed By: Jason Youssef MD at 06/09/2018 11:31 AM WSN:[id number]
--- NOTE | 2018-06-09 12:46 | NUR ---
Physical Therapy Impression Pt safe for DC when medically appropriate. Pt has met PT goals. Physical Therapy Goals 1. Mod I bed mobility. 2. Mod I transfers. 3. Mod I gait x 50' with appropriate assistive device. 4. Ascend/descend 1 step SBA. Patient's Goals
--- NOTE | 2018-06-09 12:47 | NUR ---
PHYSICAL THERAPY INFORMATION TRANSFER SHEET BED MOBILITY: Independent TRANSFERS: Independent GAIT: 150 ' with O2 RW and Modified I/ AE Weightbearing Status: STAIRS: 2 with Standby Assistance CGA. EXERCISES: Verbalizes Needs: Yes Understands Directions Yes Cooperative: Yes Family Teaching: Yes Physical Therapy Comment:
[2018-06-09 14:45] VITALS: BP 132/66
[2018-06-09] MEDS ORDERED: FLUT16SP19 NS (16:25)
--- NOTE | 2018-06-09 16:41 | Hospitalist Depart ---
Discharge Summary Reason for Hosp/Final Diag: (1) Double vision Status: Acute Hospital Course & Plan: No other acute findings/symptoms. Question if related to the nebs. She had the same problem with DuoNeb about a year ago, so stopped it. MRI performed to rule out a central problem, essentially normal. Patient will follow up with ophthalmology. (2) Altered mental status Status: Acute Hospital Course & Plan: Resolved. She presented with progressive weakness and morning confusion over the last couple of weeks. She had no focal deficits and no sign of infection. CT scan of the head was unremarkable. MRI as above. (3) Hypoxia Status: Acute Hospital Course & Plan: At rest, she is requiring 3L. However, she desaturates with very little exertion and requires as much as 6L. A Chest x-ray did not show any acute changes. Reports she previously increased to 5L at home on her own, but was instructed to turn it down again to 3L. Suspect worsening of her chronic lung disease with hypoxia. Marce has new concentrator for her home that goes above 5L, which will be delivered today. She will increase with ambulation. (4) Chronic obstructive pulmonary disease Status: Chronic Hospital Course & Plan: She had not filled some of her inhalers for over a year and was noncompliant with her others. She is now back on the medications she should have been on at home. (5) OAB (overactive bladder) Status: Chronic Hospital Course & Plan: Not on any medication currently. Departure Latest Vital Signs Vital Signs 06/09/18 14:45 Temp 98.3 Pulse 103 Resp 20 B/P (MAP) 132/66 (88) Pulse Ox 93 O2 Delivery Nasal Cannula O2 Flow Rate 3.0 Weight (Pounds): 83 Weight (Ounces): 11.0 Result Diagram: 06/09/1825 06/09/18524 Condition: Improved Discharge: Home, Home Health PT/OT Follow Up For: PT For Strengthening, OT For ADL's, PT Evaluation and Treat, OT Evaluation and Treat Discharge Instructions Home Meds Active Scripts Fluticasone Prop 50 Mcg Ns (FLONASE 50 MCG NS) 16 Gm [place].susp, 1 SPRAYS NS QDAY for 30 Days, #1 BOT 0 Refills Prov:JAMES RIGGS [address] WORKER 06/09/18 Tramadol Hcl (TRAMADOL HCL) 50 Mg Tablet, 50 MG PO Q6H PRN for PAIN, #20 TAB 0 Refills Prov:ROGER DE JESUS DO 05/31/18 Albuterol Sulfate (VENTOLIN HFA) 18 Gm Inh, 2 PUFF INH Q4-6H PRN for SHORTNESS OF BREATH, #1 INH 6 Refills Prov:ОЛЬГА AGOSTO MD 08/01/17 Aspirin (ASPIR 81) 81 Mg Tablet.dr, 81 MG PO QDAY, #90 TAB Prov:ОЛЬГА AGOSTO MD 03/16/16 Reported Medications Levothyroxine Sodium (LEVOTHYROXINE SODIUM) 75 Mcg Tablet, 75 MCG PO QDAY, TAB 06/06/18 Verapamil Hcl (VERAPAMIL ER) 120 Mg Tablet.er, 1 CAP PO HS 06/03/18 Pnv#75/Iron Fum/Fa/Om3/Dha/Epa (ONE A DAY DHA PACK) 1 Each Combo..pkg, 1 CAP PO QDAY 05/31/18 Melatonin (MELATONIN) 10 Mg Capsule, 10 MG PO HS, CAPSULE 04/05/18 Oxygen (OXYGEN) Inha, 5 L INH, L 06/29/16 Budesonide (BUDESONIDE) 0.25 Mg/2 Ml Ampul.neb, 0.25 MG IH BID, ML 01/06/16 Formoterol Fumarate (PERFOROMIST) 20 Mcg/2 Ml Vial.neb, 20 MCG IH BID 01/06/16 Discontinued Reported Medications Levothyroxine Sodium (LEVOTHYROXINE SODIUM) 100 Mcg Tablet, 100 MCG PO QDAY, TAB 04/05/18 Discontinued Scripts Sulfamethoxazole/Trimet 800-160 Mg Tab (BACTRIM DS TABLET) 1 Each Tablet, 1 TAB PO Q12H for 7 Days, #14 TAB Prov:ROGER DE JESUS DO 05/31/18 Ipratropium/Albuterol Sulfate (IPRAT-ALBUT 0.5-3(2.5) MG/3 ML) 3 Ml Ampul.neb, 3 ML IH QID PRN for SHORTNESS OF BREATH, #60 VIAL 5 Refills Prov:ОЛЬГА AGOSTO MD 08/01/17 Ondansetron 4 Mg Odt (ONDANSETRON 4 MG ODT) 4 Mg Tab.rapdis, 4 MG PO ONCE, #20 TAB Prov:ROGER DE JESUS DO 05/31/18 Diet: Regular Activity: As Tolerated Special Instructions: Wear 3L oxygen while resting, increase to 6L with ambulation. Continue nebulizers as prescribed. Follow up with PCP in one week. Copies to: ОЛЬГА AGOSTO MD ; Venous Thromboembolism Antithrombotics Is Pt On Any Antithrombotics?: No [id number] Certification Face to Face Home Health Certification Patient's Primary Care Provider: Ольга Agosto MD Institutional Provider conducted the [id number] encounter. Electronic Undersigning Physician Certifies Home Health. I certify that the patient has been under my care and that I had a [id number] encounter that meets the physician [id number] encounter requirements with this patient. This patient is home-bound due to safety issues and continues to require assistance with ADL's. I certify that based on my findings, that Nursing, Aides and the following Home Health services are medically necessary: Medical Necessity: Nursing, Rehab Date Face to Face Conducted: Jun 09, [address] Jun 09, 2018 16:41
== END 2018-06-09 17:30 | disposition home health service (06) | DRG 191 ==
LOC: ER 10:30 → MED 14:06
PROVIDERS: ADMIT Internal Medicine; ATTEND Internal Medicine
DX: J44.1 Chronic obstructive pulmonary disease with (acute) exacerbation (principal); N39.0 Urinary tract infection, site not specified; K21.9 Gastro-esophageal reflux disease without esophagitis; N32.81 Overactive bladder; H53.2 Diplopia; I10 Essential (primary) hypertension; E03.9 Hypothyroidism, unspecified; R09.02 Hypoxemia; Z96.89 Presence of other specified functional implants; Z99.81 Dependence on supplemental oxygen; Z91.81 History of falling; Z90.710 Acquired absence of both cervix and uterus; Z91.14 Patient's other noncompliance with medication regimen; Z87.891 Personal history of nicotine dependence
CPT/HCPCS: 36415; 70450; 70551; 71045; 72125; 80320; 81001; 82040; 82140; 82150; 82247; 82310; 82374; 82435; 82565; 82947; 83605; 83690; 84075; 84132; 84155; 84295; 84443; 84450; 84460; 84520; 85025; 85610; 85730; 93005; 94640; 96360; 96361; 97162; 97166; 99282; 99285; J7030; J7606; L0172

== ENCOUNTER → 2018-07-08 | Outpatient (CLI) | payer MEDICARE ==
[2018-06-04 10:31] VITALS: BMI 13.8
[~2018-07-08] MED LIST changes: +DICL100G39 TD; +GABA-547 PO; +LEVO50TA86 PO
[2018-07-08 11:41] LABS: PLATELET COUNT, AUTOMATED 474 K/uL (150-450)
== END ==
LOC: LAB 11:26
PROVIDERS: ATTEND Internal Medicine
DX: J44.9 Chronic obstructive pulmonary disease, unspecified (principal); E03.9 Hypothyroidism, unspecified; G47.00 Insomnia, unspecified; M79.601 Pain in right arm; I10 Essential (primary) hypertension
CPT/HCPCS: 36415; 82040; 82247; 82310; 82374; 82435; 82565; 82607; 82728; 82746; 82947; 83540; 83550; 84075; 84132; 84155; 84295; 84443; 84450; 84460; 84520; 85025

== ENCOUNTER → 2018-09-23 | Outpatient (CLI) | payer MEDICARE ==
[2018-06-04 10:31] VITALS: BMI 13.8
[~2018-09-23] MED LIST changes: +MIRT15TA11 PO; -TRAZ50TA34 PO; +TRAZ50TA52 PO
[2018-09-23 16:50] LABS: PLATELET COUNT, AUTOMATED 414 K/uL (150-450)
== END ==
LOC: LAB 16:04
PROVIDERS: ATTEND Internal Medicine
DX: J44.9 Chronic obstructive pulmonary disease, unspecified (principal); E03.9 Hypothyroidism, unspecified; I10 Essential (primary) hypertension; D64.9 Anemia, unspecified; N39.0 Urinary tract infection, site not specified
CPT/HCPCS: 36415; 81001; 82040; 82247; 82310; 82374; 82435; 82565; 82728; 82947; 83540; 83550; 84075; 84132; 84155; 84295; 84439; 84443; 84450; 84460; 84520; 85025; 87088